=== PATIENT | male | born 1970 | race Hispanic/Latino ===

== ENCOUNTER 2018-05-01 00:52 | Emergency (ER) | payer SELFPAY | END 2018-05-01 01:28 | disposition home or self-care (01) | LOC: EDH 00:52 | DX: S80.01XA Contusion of right knee, initial encounter (principal); F31.9 Bipolar disorder, unspecified; F41.9 Anxiety disorder, unspecified; W22.8XXA Striking against or struck by other objects, initial encounter; Y93.89 Activity, other specified; Y92.89 Other specified places as the place of occurrence of the external cause; Y99.8 Other external cause status ==

== ENCOUNTER 2018-05-09 01:14 | Emergency (ER) | payer OTHER ==
[2018-05-09 01:58] LABS: BASOPHILS % (AUTO) 0.5 % (0.0-5.0); EOSINOPHILS % (AUTO) 0.8 % (0.0-8.0); HEMATOCRIT 38.2 % (42-54); LYMPHOCYTES % (AUTO) 18.4 % (21.0-51.0); MEAN CORPUSCULAR HEMOGLOBIN 27.4 pg (27.0-33.0); MEAN CORPUSCULAR HGB CONC 32.9 g/dL (32.0-36.0); MEAN CORPUSCULAR VOLUME 83.4 fL (79-99); NEUTROPHILS % (AUTO) 73.3 % (40.0-77.0); PLATELET COUNT (AUTO) 239 K/uL (130-400); RED BLOOD CELL COUNT(AUTO) 4.58 MIL/uL (4.50-6.20); RED CELL DISTRIBUTION WIDTH 14.4 % (11.0-15.5); WHITE BLOOD COUNT (AUTO) 13.3 K/uL (4.8-10.8)
[2018-05-09 02:04] LABS: AMPHET/METH SCREEN,URINE NEGATIVE (NEGATIVE); BARBITURATE SCREEN, URINE NEGATIVE (NEGATIVE); BENZODIAZEPINES SCREEN,URINE NEGATIVE (NEGATIVE); CANNABINOID SCREEN,URINE NEGATIVE (NEGATIVE); COCAINE SCREEN,URINE NEGATIVE (NEGATIVE); OPIATE SCREEN,URINE NEGATIVE (NEGATIVE); PHENCYCLIDINE SCREEN,URINE NEGATIVE (NEGATIVE)
[2018-05-09 02:06] LABS: CARBON DIOXIDE 29 mmol/L (21-32); CHLORIDE 105 mmol/L (101-111); GLOMERULAR FILTR. RATE CALC 86 mL/min (>60); GLUCOSE,RANDOM 122 mg/dL (70-105); SODIUM SERUM 141 mmol/L (136-145); UREA NITROGEN, BLOOD 12 mg/dL (7-18)
[2018-05-09 02:10] LABS: ALANINE AMINOTRANSFERASE 45 U/L (12-78); ALBUMIN 3.8 g/dL (3.5-5.0); ALCOHOL, BLOOD < 3 mg/dL (0-10); ASPARTATE AMINOTRANSFERASE 31 U/L (10-37); BILIRUBIN,TOTAL 0.4 mg/dL (0.2-1.0); SALICYLATE 2.9 mg/dL (2.8-20.0); TOTAL PROTEIN, SERUM 6.9 g/dL (6.0-8.3)
[2018-05-09 02:12] LABS: ACETAMINOPHEN < 1 mcg/mL (10-29)
== END 2018-05-09 04:58 | disposition home or self-care (01) ==
LOC: EDH 01:14
DX: F19.10 Other psychoactive substance abuse, uncomplicated (principal); F31.9 Bipolar disorder, unspecified; F41.9 Anxiety disorder, unspecified; Z87.891 Personal history of nicotine dependence
CPT/HCPCS: 36415; 80053; 80305; 85025; 94760; 99284; G0480 ×2; G0481

== ENCOUNTER 2022-08-05 22:48 | Emergency (ER) | payer SELFPAY | END 2022-08-05 23:53 | disposition home or self-care (01) | LOC: EDH 22:48 | DX: M25.461 Effusion, right knee (principal); M25.561 Pain in right knee | CPT/HCPCS: 73562 ==

== ENCOUNTER 2022-08-09 14:17 | Emergency (ER) | payer OTHER ==
[~2022-08-09] VITALS: Ht 167.6 cm; Wt 99.8 kg
[2022-08-09] MEDS ORDERED: ZIPRASIDONE MESYLATE 20 MG/VIAL IM STA (15:03)
[2022-08-09 15:17] LABS: BASOPHILS % (AUTO) 0.6 % (0.0-5.0); EOSINOPHILS % (AUTO) 0.8 % (0.0-8.0); HEMATOCRIT 42.3 % (42-54); LYMPHOCYTES % (AUTO) 24.3 % (21.0-51.0); MEAN CORPUSCULAR HEMOGLOBIN 27.9 pg (27.0-33.0); MEAN CORPUSCULAR HGB CONC 32.6 g/dL (32.0-36.0); MEAN CORPUSCULAR VOLUME 85.5 fL (79-99); MONOCYTES % (AUTO) 11.2 % (3.0-13.0); NEUTROPHILS % (AUTO) 62.4 % (40.0-77.0); PLATELET COUNT (AUTO) 255 K/uL (130-400); RED BLOOD CELL COUNT(AUTO) 4.95 MIL/uL (4.50-6.20); RED CELL DISTRIBUTION WIDTH 14.6 % (11.0-15.5); WHITE BLOOD COUNT (AUTO) 11.9 K/uL (4.8-10.8)
[2022-08-09 15:28] LABS: CARBON DIOXIDE 27 mmol/L (21-32); CHLORIDE 102 mmol/L (101-111); CREATININE 0.9 mg/dL (0.5-1.5); GLOMERULAR FILTR. RATE CALC 95 mL/min (>60); GLUCOSE,RANDOM 149 mg/dL (70-105); POTASSIUM 4.5 mmol/L (3.5-5.1); SODIUM SERUM 139 mmol/L (136-145); UREA NITROGEN, BLOOD 13 mg/dL (7-18)
[2022-08-09 15:32] LABS: ALANINE AMINOTRANSFERASE 35 U/L (12-78); ALBUMIN 4.2 g/dL (3.5-5.0); ALCOHOL, BLOOD 5 mg/dL (0-10); ASPARTATE AMINOTRANSFERASE 17 U/L (10-37); CREATINE KINASE, TOTAL 223 U/L (21-232); TOTAL PROTEIN, SERUM 7.4 g/dL (6.0-8.3)
[2022-08-09 15:33] LABS: SALICYLATE < 2.8 mg/dL (2.8-20.0)
[2022-08-09 15:34] LABS: ACETAMINOPHEN < 1 mcg/mL (10-29)
[2022-08-09 15:40] LABS: APPEARANCE,URINE CLEAR (CLEAR); BILIRUBIN,URINE NEGATIVE (NEGATIVE); COLOR,URINE COLORLESS (YELLOW); GLUCOSE, URINE (UA) NEGATIVE (NEGATIVE); KETONES,URINE NEGATIVE (NEGATIVE); LEUKOCYTE ESTERASE ,URINE NEGATIVE Leu/uL (NEGATIVE); NITRATE,URINE NEGATIVE (NEGATIVE); OCCULT BLOOD,URINE NEGATIVE (NEGATIVE); PH,URINE 5.5 (5.0-8.0); PROTEIN,URINE NEGATIVE (NEGATIVE); UROBILINOGEN,URINE 0.2 mg/dL (0.2-1.0)
[2022-08-09 15:44] LABS: RBC,URINE 0-1 /HPF (0-1); WBC,URINE 0-1 /HPF (0-1)
[2022-08-09] MEDS ORDERED: KETOROLAC 30MG VIAL (30MG/ML) ONE (16:23)
[2022-08-09 16:42] LABS: AMPHET/METH SCREEN,URINE NEGATIVE (NEGATIVE); BARBITURATE SCREEN, URINE NEGATIVE (NEGATIVE); BENZODIAZEPINES SCREEN,URINE NEGATIVE (NEGATIVE); CANNABINOID SCREEN,URINE POSITIVE (NEGATIVE); COCAINE SCREEN,URINE NEGATIVE (NEGATIVE); OPIATE SCREEN,URINE NEGATIVE (NEGATIVE); PHENCYCLIDINE SCREEN,URINE NEGATIVE (NEGATIVE)
[2022-08-09 17:08] VITALS: BP 135/72
== END 2022-08-09 18:34 | disposition home or self-care (01) ==
LOC: EDH 14:17
DX: F31.9 Bipolar disorder, unspecified (principal); Z79.1 Long term (current) use of non-steroidal anti-inflammatories (NSAID)
CPT/HCPCS: 99284; 82550; 80053; 80305; 85025; 36415; 96372 ×2; 81001; G0481; J1885; J3486

== ENCOUNTER 2022-09-21 02:25 | Emergency (ER) | payer OTHER ==
[2022-09-21 02:36] VITALS: BP 127/82
[2022-09-21] MEDS ORDERED: IBUP-1493 PO (02:58)
== END 2022-09-21 03:04 | disposition home or self-care (01) ==
LOC: EDH 02:25
DX: M17.11 Unilateral primary osteoarthritis, right knee (principal); F31.9 Bipolar disorder, unspecified

== ENCOUNTER 2025-01-13 21:59 | Emergency (ER) | payer SELFPAY ==
[~2025-01-13] VITALS: Ht 172.7 cm; Wt 113.4 kg
[~2025-01-13 21:59] MED LIST: IBUP-1493 PO
[2025-01-13 22:51] LABS: BASOPHILS # (AUTO) 0.05 K/uL (0.00-0.20); BASOPHILS % (AUTO) 0.4 % (0.0-5.0); EOSINOPHILS # (AUTO) 0.01 K/uL (0.00-0.70); EOSINOPHILS % (AUTO) 0.1 % (0.0-8.0); HEMATOCRIT 35.6 % (42-54); IMMATURE GRANULOCYTE ABSOLUTE 0.06 K/uL (0-1); LYMPHOCYTES # (AUTO) 1.5 K/uL (1.0-4.8); LYMPHOCYTES % (AUTO) 12.3 % (21.0-51.0); MEAN CORPUSCULAR HEMOGLOBIN 28.1 pg (27.0-33.0); MEAN CORPUSCULAR HGB CONC 32.3 g/dL (32.0-36.0); MONOCYTES # (AUTO) 0.8 K/uL (0.1-1.0); MONOCYTES % (AUTO) 6.8 % (3.0-13.0); NEUTROPHILS # (AUTO) 9.8 K/uL (1.8-7.7); NEUTROPHILS % (AUTO) 79.9 % (40.0-77.0); PLATELET COUNT (AUTO) 235 K/uL (130-400); RED BLOOD CELL COUNT(AUTO) 4.09 MIL/uL (4.50-6.20); RED CELL DISTRIBUTION WIDTH 14.1 % (11.0-15.5); WHITE BLOOD COUNT (AUTO) 12.3 K/uL (4.8-10.8)
[2025-01-13 23:00] LABS: CARBON DIOXIDE 29 mmol/L (21-32); CHLORIDE 103 mmol/L (101-111); CREATININE 0.8 mg/dL (0.5-1.3); GLOMERULAR FILTR. RATE CALC 106 mL/min (>90); GLUCOSE,RANDOM 264 mg/dL (70-105); POTASSIUM 4.5 mmol/L (3.5-5.1); SODIUM SERUM 139 mmol/L (136-145); UREA NITROGEN, BLOOD 13 mg/dL (7-18)
[2025-01-13 23:05] LABS: CREATINE KINASE, TOTAL 138 U/L (21-232)
[2025-01-13 23:10] LABS: ALCOHOL, BLOOD < 3 mg/dL (0-10)
--- NOTE | 2025-01-14 01:18 | ERN ---
ED Note History of Present Illness Stated Complaint: INGESTION OF THC/CBD GUMMIES Chief Complaint: Drug Abuse Time Seen by MD: 22:05 Time Seen by Midlevel: 22:05 Dictation: The patient is a 54-year-old male with a history of bipolar who presents to the emergency department via EMS for evaluation after he took unknown amount of THC gummies. Patient is poor historian and most of the information was gathered by EMS and nursing. Per nurses patient was at a [facility] where he had unknown amount of THC gummies. EMS was called from the [facility] due to patient being drowsy Allergies: Coded Allergies: No Known Allergies (Unverified Allergy, Unknown, 08/09/22) Home Meds Active Scripts Ibuprofen (Motrin/Advil) 800 Mg Tab, 800 MG PO TID, #30 TAB Prov:SHERRELL MENON MD 09/21/22 Past Medical History Past Medical History: Bipolar Surgical History: None Family History: Negative Social History: Negative RN Note Reviewed/Agreed w/PFSH: Yes Review of System Dictation Constitutional: Negative for fever,chills, and weight loss Eyes: Negative for injury, pain,redness, and discharge ENT: Negative for injury,pain or swelling Cardiovascular: Negative for chest pain, palpitations, and edema Respiratory: Negative for shortness of breath, cough, and wheezing, Abdomen/GI: Negative for abdominal pain, nausea, vomiting, diarrhea, and constipation Back: Negative for injury and pain : Negative for injury, bleeding and discharge MS/Extremity: Negative for injury and deformity Skin: Negative for rash, and discoloration Neuro: Negative for headache, numbness, tingling, and seizure positive for weakness Psych: Negative for suicide ideation, homicidal ideation, and hallucinations Initial Vital Sign VS Vital Signs Date Time Temp Pulse Resp B/P (MAP) Pulse Ox O2 Delivery O2 Flow Rate FiO2 01/13/25 22:01 98.1 96 16 114/76 97 Room Air 0 01/14/25 03:46 21 Physical Exam Dictation Vital Signs reviewed General Appearance: Drowsy, oriented x 3, no acute distress, well developed, nourished. Head and Face: non-traumatic. Eyes: PERRL, pink conjunctivas, eyelid no trauma, anterior chamber with arcus senilis. Ears: Pinnas intact and no signs of trauma or erythema ear canals clear and no discharge TM no erythema Nose: No discharge, no bleeding. Oropharynx: Mouth normal, tongue pink. pharynx clear,no erythema, tonsils no exudates, no abscesses noted, mucous membrane moist Neck: Supple, non-tender, no thyromegaly, no masses, no JVD, no bruits Breast:Deferred Chest:No tenderness, no crepitus, no paradoxical movement, no retractions Lungs:Clear, well-ventilated, symmetric, no rales, no wheezing, no rhonchi, no stridor, good breath sounds bilaterally Heart: Regular rate, regular rhythm, no murmur, no gallops Vascular: no peripheral edema, Abdomen: Soft, positive bowel sounds, nondistended, no guarding, nontender, no rebound, no masses no hepatomegaly, no splenomegaly, no Salinas's sign, no hernias. Rectal: Deferred Genital: Deferred Neurological: Normal speech, motor function intact, sensory function intact Musculoskeletal: Neck nontender, full range of motion, back nontender, full range of motion, Extremities: nontender, full range of motion Skin: Color pink, dry, no turgor, no rash, no lacerations, no abrasions, no contusions. Lymphatic: Deferred Results (Laboratory/Radiology) Laboratory/Radiology Laboratory Tests Test 01/13/25 22:34 White Blood Count 12.3 K/uL (4.8-10.8) H Red Blood Count 4.09 MIL/uL (4.50-6.20) L Hemoglobin 11.5 g/dL (14.0-18.0) L Hematocrit 35.6 % (42-54) L Mean Corpuscular Volume 87.0 fL (79-99) Mean Corpuscular Hemoglobin 28.1 pg (27.0-33.0) Mean Corpuscular Hemoglobin Concent 32.3 g/dL (32.0-36.0) Red Cell Distribution Width 14.1 % (11.0-15.5) Platelet Count 235 K/uL (130-400) Mean Platelet Volume 10.6 fL (7.5-10.5) H Immature Granulocyte % (Auto) 0.5 % (0-1) Neutrophils (%) (Auto) 79.9 % (40.0-77.0) H Lymphocytes (%) (Auto) 12.3 % (21.0-51.0) L Monocytes (%) (Auto) 6.8 % (3.0-13.0) Eosinophils (%) (Auto) 0.1 % (0.0-8.0) Basophils (%) (Auto) 0.4 % (0.0-5.0) Neutrophils # (Auto) 9.8 K/uL (1.8-7.7) H Lymphocytes # (Auto) 1.5 K/uL (1.0-4.8) Monocytes # (Auto) 0.8 K/uL (0.1-1.0) Eosinophils # (Auto) 0.01 K/uL (0.00-0.70) Basophils # (Auto) 0.05 K/uL (0.00-0.20) Absolute Immature Granulocyte (auto 0.06 K/uL (0-1) Nucleated Red Blood Cells 0.0 % (0.0-0.19) Sodium Level 139 mmol/L (136-145) Potassium Level 4.5 mmol/L (3.5-5.1) Chloride Level 103 mmol/L (101-111) Carbon Dioxide Level 29 mmol/L (21-32) Blood Urea Nitrogen 13 mg/dL (7-18) Creatinine 0.8 mg/dL (0.5-1.3) Glomerular Filtration Rate Calc 106 mL/min (>90) Random Glucose 264 mg/dL (70-105) H Total Calcium 8.8 mg/dL (8.5-10.1) Magnesium Level 2.00 mg/dL (1.80-2.40) Total Creatine Kinase 138 U/L (21-232) # Troponin I High Sensitivity < 4 ng/L (4-75) L Serum Alcohol < 3 mg/dL (0-10) Labs Reviewed?: Yes EKG: (+) rhythm (Sinus) EKG Comment: Date:01/13/2025 Time:2240 Ventricular rate:95 TX interval:194 QRS duration:86 QT/QTc:373 EKG interpretation: Sinus rhythm Reviewed by ED Attending no STEMI ED Course ED Course Orders Procedure Category Date Status Time Cbc With Differential LAB 01/13/25 Complete 22:24 Chest 1vw RAD 01/13/25 Taken 22:24 12 Lead Ekg Tracing- EKG 01/13/25 Complete Technical 22:24 0.9%Nacl 1000ml (Ns PHA 01/13/25 Complete 1000ml) 22:30 Magnesium LAB 01/13/25 Complete 22:24 Creatine Kinase, Total LAB 01/13/25 Complete 22:24 Troponin I High LAB 01/13/25 Complete Sensitivity 22:24 Urinalysis Profile LAB 01/13/25 Logged 22:24 Basic Metabolic Panel LAB 01/13/25 Complete 22:24 Alcohol, Blood LAB 01/13/25 Complete 22:24 Drug Screen Urine LAB 01/13/25 Logged 22:24 Current Medications Medications (Trade) Dose Ordered Sig/Abraham Route PRN Reason Start Time Stop Time Status Last Admin Dose Admin Sodium Chloride 1,000 ml @ 0 mls/hr ONCE ONCE IV 01/13/25 22:30 01/13/25 22:31 DC 01/14/25 02:35 Vital Signs Date Time Temp Pulse Resp B/P (MAP) Pulse Ox O2 Delivery O2 Flow Rate FiO2 01/14/25 03:46 98.2 88 18 116/74 97 Room Air* 0 21 01/13/25 22:01 98.1 96 16 114/76 97 Room Air 0 Medical Decision Making MDM The patient is a 54-year-old male with a history of bipolar who presents to the emergency department via EMS for evaluation after he took unknown amount of THC gummies. Patient is poor historian and most of the information was gathered by EMS and nursing. Per nurses patient was at a [facility] where he had unknown amount of THC gummies. EMS was called from the [facility] due to patient being drowsy alcohol abuse Differential diagnosis: Drug intoxication, dehydration, CBC showed mild leukocytosis, no anemia, chemistry showed mildly elevated blood glucose, negative troponins, negative alcohol Need for hospitalization: Patient does not meet criteria for hospitalization. There are no social concerns with this patient. DX & DISP Disposition: Discharge Departure Impression: Primary Impression: Drug abuse Additional Impression: Encephalopathy acute Condition: Stable Referrals: SELF,REFERRAL (PCP) I performed a substantive portion of the visit. I have reviewed and personally made and approve the management plan that is documented in the notes by myself with PHAN/resident. I acknowledged full responsibility for the patient's management plan. I took over care in the morning, patient has been observed for about 8 hours in the ER. Clinically intoxicated initially, patient has sobered up. In the morning I woke up the patient's, who is ambulatory p.o. tolerant nontoxic in appearance he has returned to baseline. We will DC. MARLEN PEARCE January 14, 2025 01:17 DAMIEN PAIGE DO January 14, 2025 07:13
[2025-01-14] MEDS: 0.9%NACL 1000ML 1,000 ML IV ONE (02:35)
[2025-01-14 03:46] VITALS: BP 116/74; PULSE 88; RESP 18; TEMP 98.2; O2SAT 97
--- NOTE | 2025-01-14 06:53 | EKG ---
[facility] Test Date: 2025-01-13 Test Time: 22:40:42 Pat Name: FERMÍN RYAN Department: ED Room: Gender: M Floor Surfacer: [id number] : 1970 Requested By: MARLEN PEARCE Order Number: [id number] Reading MD: Aristides Tobias Measurements Intervals [place] Rate: 95 P: 43 NJ: 194 QRS: 26 QRSD: 86 T: 21 QT: 373 QTc: 469 Interpretive Statements Sinus rhythm Compared to ECG 03/14/2018 21:57:12 Sinus tachycardia no longer present Electronically Signed On 01-14-2025 07:40:04 CDT by Aristides Tobias Please click the below link to view image of tracing.
--- NOTE | 2025-01-14 08:40 | HMCIMG ---
CHEST 1VW HISTORY: Dizziness COMPARISON: None FINDINGS: A frontal projection of the chest was obtained. There are bilateral pulmonary infiltrates suggestive of pulmonary vascular congestion with possible superimposed pneumonitis. The heart is borderline enlarged. Mild degenerative changes are seen. No evidence of aortic calcification is seen. IMPRESSION: 1. Bilateral pulmonary infiltrates are seen suggestive of pulmonary vascular congestion with possible superimposed pneumonitis.
== END 2025-01-14 07:33 | disposition home or self-care (01) ==
LOC: EDH 21:59
DX: F19.10 Other psychoactive substance abuse, uncomplicated (principal); G93.40 Encephalopathy, unspecified; Z79.1 Long term (current) use of non-steroidal anti-inflammatories (NSAID)
CPT/HCPCS: 99285; 96360; 71045; 82550; 83735; 84484; 80048; 85025; 36415; 93005; J7030

== ENCOUNTER 2025-01-14 23:13 | Emergency (ER) | payer SELFPAY ==
[~2025-01-14] VITALS: Ht 172.7 cm; Wt 93.4 kg
[2025-01-14 23:45] LABS: BASOPHILS # (AUTO) 0.05 K/uL (0.00-0.20); BASOPHILS % (AUTO) 0.5 % (0.0-5.0); EOSINOPHILS # (AUTO) 0.14 K/uL (0.00-0.70); EOSINOPHILS % (AUTO) 1.5 % (0.0-8.0); IMMATURE GRANULOCYTE ABSOLUTE 0.04 K/uL (0-1); LYMPHOCYTES # (AUTO) 2.9 K/uL (1.0-4.8); LYMPHOCYTES % (AUTO) 30.3 % (21.0-51.0); MEAN CORPUSCULAR HEMOGLOBIN 28.5 pg (27.0-33.0); MEAN CORPUSCULAR HGB CONC 32.9 g/dL (32.0-36.0); MEAN CORPUSCULAR VOLUME 86.5 fL (79-99); MONOCYTES # (AUTO) 0.8 K/uL (0.1-1.0); MONOCYTES % (AUTO) 8.5 % (3.0-13.0); NEUTROPHILS # (AUTO) 5.6 K/uL (1.8-7.7); NEUTROPHILS % (AUTO) 58.8 % (40.0-77.0); PLATELET COUNT (AUTO) 222 K/uL (130-400); RED BLOOD CELL COUNT(AUTO) 3.93 MIL/uL (4.50-6.20); WHITE BLOOD COUNT (AUTO) 9.5 K/uL (4.8-10.8)
--- NOTE | 2025-01-14 23:45 | NUR ---
sister at bedside
[2025-01-14 23:56] LABS: CARBON DIOXIDE 27 mmol/L (21-32); CHLORIDE 105 mmol/L (101-111); CREATININE 0.9 mg/dL (0.5-1.3); GLOMERULAR FILTR. RATE CALC 103 mL/min (>90); GLUCOSE,RANDOM 245 mg/dL (70-105); POTASSIUM 3.7 mmol/L (3.5-5.1); SODIUM SERUM 140 mmol/L (136-145); UREA NITROGEN, BLOOD 20 mg/dL (7-18)
[2025-01-14 23:58] LABS: AMPHET/METH SCREEN,URINE NEGATIVE (NEGATIVE); BARBITURATE SCREEN, URINE NEGATIVE (NEGATIVE); BENZODIAZEPINES SCREEN,URINE NEGATIVE (NEGATIVE); CANNABINOID SCREEN,URINE POSITIVE (NEGATIVE); COCAINE SCREEN,URINE NEGATIVE (NEGATIVE); OPIATE SCREEN,URINE NEGATIVE (NEGATIVE); PHENCYCLIDINE SCREEN,URINE NEGATIVE (NEGATIVE)
[2025-01-15] LABS: CREATINE KINASE, TOTAL 168 U/L (21-232)
[2025-01-15 00:07] LABS: ACETAMINOPHEN < 1 mcg/mL (10-29); ALCOHOL, BLOOD < 3 mg/dL (0-10); SALICYLATE < 2.8 mg/dL (2.8-20.0)
--- NOTE | 2025-01-15 00:14 | NUR ---
[facility] crisis line called, requesting screener to evaluate patient. screener will be paged.
--- NOTE | 2025-01-15 01:25 | NUR ---
brenda durán screener here to evaluate patient
--- NOTE | 2025-01-15 02:32 | ERN ---
General Chief Complaint: Psych Evaluation Stated Complaint: C/[facility] Time Seen by MD: 23:20 Time Seen by Midlevel: 23:20 Source: patient, family (sister) History of Present Illness Initial Comments The patient is a 54-year-old male being brought in by sister for a psych evaluation. As per sister the patient has been having auditory and visual h allucinations. The patient is a followed by [facility] Allergies: Coded Allergies: No Known Allergies (Unverified Allergy, Unknown, 08/09/22) Home Meds Active Scripts Ibuprofen (Motrin/Advil) 800 Mg Tab, 800 MG PO TID, #30 TAB Prov:SINANSHERRELL Castaneda MD 09/21/22 Past Medical History Past Medical History: Anxiety, Bipolar, Depression, Diabetes-Type II, High Cholesterol, Schizophrenia Medical History Other: MANIC DEPRESSION Past Surgical History: Unknown Family History Family History: Negative Social History Social History: Negative ROS Dictation CONSTITUTIONAL: Negative except for HPI HEAD/FACE: Negative except for HPI EENT: Negative except for HPI RESPIRATORY: Negative except for HPI GASTROINTESTINAL/ABDOMINAL: Negative except for HPI GENITOURINARY: Negative except for HPI MUSCULOSKELETAL: Negative except for HPI INTEGUMENTARY: Negative except for HPI NEUROLOGICAL/PSYCH: Negative except for HPI HEMATOLOGIC/LYMPHATIC: Negative except for HPI All Systems Negative, Except as noted above. 13 point review of systems assessed and all negative except for above. Physical Exam Physical Exam Dictation Vital Signs reviewed General Appearance: Alert, oriented x 3, no acute distress, well developed, nourished. Head and Face: non-traumatic. Eyes: PERRL, pink conjunctivas, eyelid no trauma, anterior chamber with arcus senilis. Ears: Pinnas intact and no signs of trauma or erythema ear canals clear and no discharge TM no erythema Nose: No discharge, no bleeding. Oropharynx: Mouth normal, tongue pink, pharynx clear,no erythema, tonsils no exudates, no abscesses noted, mucous membrane moist Neck: Supple, non-tender, no thyromegaly, no masses, no JVD, no bruits Breast:Deferred Chest:No tenderness, no crepitus, no paradoxical movement, no retractions Lungs:Clear, well-ventilated, symmetric, no rales, no wheezing, no rhonchi, no stridor, good breath sounds bilaterally Heart: Regular rate, regular rhythm, no murmur, no gallops Vascular: no peripheral edema, Abdomen: Soft, positive bowel sounds, nondistended, no guarding, nontender, no rebound, no masses no hepatomegaly, no splenomegaly, no Salinas's sign, no hernias. Rectal: Deferred Genital: Deferred Neurological: Normal speech, motor function intact, sensory function intact Musculoskeletal: Neck nontender, full range of motion, back nontender, full range of motion, Extremities: nontender, full range of motion Skin: Color pink, dry, no turgor, no rash, no lacerations, no abrasions, no contusions. Lymphatic: Deferred Results Laboratory and Microbiology Lab and Micro Result Laboratory Tests Test 01/14/25 23:23 01/14/25 23:39 Urine Opiates Screen NEGATIVE (NEGATIVE) Urine Barbiturates Screen NEGATIVE (NEGATIVE) Urine Phencyclidine Screen NEGATIVE (NEGATIVE) Urine Amphetamines Screen NEGATIVE (NEGATIVE) Urine Benzodiazepines Screen NEGATIVE (NEGATIVE) Urine Cocaine Screen NEGATIVE (NEGATIVE) Urine Marijuana (THC) Screen POSITIVE (NEGATIVE) H White Blood Count 9.5 K/uL (4.8-10.8) Red Blood Count 3.93 MIL/uL (4.50-6.20) L Hemoglobin 11.2 g/dL (14.0-18.0) L Hematocrit 34.0 % (42-54) L Mean Corpuscular Volume 86.5 fL (79-99) Mean Corpuscular Hemoglobin 28.5 pg (27.0-33.0) Mean Corpuscular Hemoglobin Concent 32.9 g/dL (32.0-36.0) Red Cell Distribution Width 14.0 % (11.0-15.5) Platelet Count 222 K/uL (130-400) Mean Platelet Volume 10.6 fL (7.5-10.5) H Immature Granulocyte % (Auto) 0.4 % (0-1) Neutrophils (%) (Auto) 58.8 % (40.0-77.0) Lymphocytes (%) (Auto) 30.3 % (21.0-51.0) Monocytes (%) (Auto) 8.5 % (3.0-13.0) Eosinophils (%) (Auto) 1.5 % (0.0-8.0) Basophils (%) (Auto) 0.5 % (0.0-5.0) Neutrophils # (Auto) 5.6 K/uL (1.8-7.7) Lymphocytes # (Auto) 2.9 K/uL (1.0-4.8) Monocytes # (Auto) 0.8 K/uL (0.1-1.0) Eosinophils # (Auto) 0.14 K/uL (0.00-0.70) Basophils # (Auto) 0.05 K/uL (0.00-0.20) Absolute Immature Granulocyte (auto 0.04 K/uL (0-1) Nucleated Red Blood Cells 0.0 % (0.0-0.19) Sodium Level 140 mmol/L (136-145) Potassium Level 3.7 mmol/L (3.5-5.1) Chloride Level 105 mmol/L (101-111) Carbon Dioxide Level 27 mmol/L (21-32) Blood Urea Nitrogen 20 mg/dL (7-18) H Creatinine 0.9 mg/dL (0.5-1.3) Glomerular Filtration Rate Calc 103 mL/min (>90) Random Glucose 245 mg/dL (70-105) H Total Calcium 8.6 mg/dL (8.5-10.1) Total Creatine Kinase 168 U/L (21-232) # Salicylates Level < 2.8 mg/dL (2.8-20.0) L Acetaminophen Level < 1 mcg/mL (10-29) L Serum Alcohol < 3 mg/dL (0-10) MDM The patient is a 54-year-old male being brought in by sister for a psych evaluation. As per sister the patient has been having auditory and visual hallucinations. The patient is a followed by [facility] - Patient evaluated by tropical behavior team, does not meet criteria for inpatient. plan to dc home with f/u outpatient with Tropical behavior team ED Course Orders Procedure Category Date Status Time Cbc With Differential LAB 01/14/25 Complete 23:20 Alcohol, Blood LAB 01/14/25 Complete 23:20 Salicylate LAB 01/14/25 Complete 23:20 Acetaminophen LAB 01/14/25 Complete 23:20 Creatine Kinase, Total LAB 01/14/25 Complete 23:20 Basic Metabolic Panel LAB 01/14/25 Complete 23:20 Drug Screen Urine LAB 01/14/25 Complete 23:20 Vital Signs Date Time Temp Pulse Resp B/P (MAP) Pulse Ox O2 Delivery O2 Flow Rate FiO2 01/15/25 02:45 99.0 89 18 128/64 98 Room Air* 0 21 01/14/25 23:16 97.2 81 20 91/60 96 Room Air DX & DISP Disposition: Discharge Departure Impression: Primary Impression: Psychiatric problem Condition: Stable Additional Instructions: YOU WERE SCREENED BY [facility] TODAY AND DO NOT MEET CRITERIA FOR INPATIENT HOSPITALIZATION. HE WILL FOLLOW UP WITH THE OUTPATIENT. IF YOU DEVELOP ANY WORSENING SYMPTOMS LEAST REPORTED TO THE ER FOR FURTHER EVALUATION. Referrals: SELF,REFERRAL (PCP) Time of Disposition: 02:45 I have reviewed the case, and I agree with, Diagnosis and Plan URVASHI DE ANDA January 15, 2025 02:32 CHILO SMITH MD January 15, 2025 02:45
--- NOTE | 2025-01-15 02:40 | NUR ---
PER [facility] SCREENER; PATIENT DOES NOT MEET CRITERIA; ED MD NOTIFIED
[2025-01-15 02:45] VITALS: BP 128/64; PULSE 89; RESP 18; TEMP 98.9; O2SAT 98
== END 2025-01-15 03:12 | disposition home or self-care (01) ==
LOC: EDH 23:13
DX: F99 Mental disorder, not otherwise specified (principal); E11.9 Type 2 diabetes mellitus without complications; E78.00 Pure hypercholesterolemia, unspecified; F20.9 Schizophrenia, unspecified; F31.9 Bipolar disorder, unspecified; Z79.1 Long term (current) use of non-steroidal anti-inflammatories (NSAID)
CPT/HCPCS: 99283; 82550; 80048; 80305; 85025; 36415; G0481

== ENCOUNTER 2025-02-15 15:47 | Emergency (ER) | payer SELFPAY ==
[~2025-02-15] VITALS: Ht 172.7 cm; Wt 85.7 kg
[2025-02-15] MEDS: ondanSETRON 4MG INJ IVP ONE (16:29)
[2025-02-15] MEDS: ketOROlac 30MG VIAL (30MG/ML) IVP ONE (16:29)
[2025-02-15] MEDS: morPHINE 2 MG SYG IVP ONE (16:29)
--- NOTE | 2025-02-15 16:34 | HMCIMG ---
EXAM: CR Left ankle, 3 View. CLINICAL HISTORY: Injury COMPARISON: None provided. FINDINGS: BONES: No acute fracture or aggressive appearing osseous lesion. JOINTS: The joint spaces appear within normal limits. No dislocation. No radiographic evidence of a joint effusion. SOFT TISSUES: The soft tissues are unremarkable. IMPRESSION: No acute osseous abnormality. /[place]
--- NOTE | 2025-02-15 16:37 | NUR ---
APPLIED PRATIBHA WRAP TO L ANKLE PER MD VERBAL ORDER.
[2025-02-15 16:43] VITALS: BP 116/62; PULSE 105; RESP 18; TEMP 97.9; O2SAT 96
--- NOTE | 2025-02-15 17:13 | ERN ---
General Chief Complaint: Mechanical Fall Stated Complaint: FALL Time Seen by MD: 15:52 History of Present Illness Initial Comments 54 y/o male came in after fall. Pt states that he twisted his ankle and has been having pain in his left ankle. Pt otherwise has no concerns. Allergies: Coded Allergies: No Known Allergies (Unverified Allergy, Unknown, 08/09/22) Home Meds Active Scripts Ibuprofen (Motrin/Advil) 800 Mg Tab, 800 MG PO TID, #30 TAB Prov:WILLAELLESHERRELL Castaneda MD 09/21/22 Past Medical History Past Medical History: Diabetes-Type II, High Cholesterol, Hypertension Medical History Other: MANIC DEPRESSION Past Surgical History: Other Surgical History Other: BILATERAL KNEE MINISCUS REPAIR Family History Family History: Negative Social History Social History: Negative ROS Dictation Ankle pain Physical Exam General Appearance: (+) no apparent distress Orientation: (+) alert Head/Face Trauma: No Ear, Nose, Throat: (+) hearing grossly normal Neck: (+) normal inspection, (+) supple Respiratory: (+) chest non-tender, (+) lungs clear Heart: (+) regular, (+) no gallop Vascular: (+) no edema, (+) normal peripheral pulse Gastrointestinal: (+) soft, (+) non-tender Back: (+) normal inspection, (+) no CVA tenderness, (+) no vertebral tenderness Extremities: (+) normal range of motion, (+) non-tender, (+) normal inspection MDM Left ankle xray shows no acute findings ED Course Orders Procedure Category Date Status Time Ankle Comp 3vws Lt RAD 02/15/25 Resulted 15:52 Morphine 2mg Syg PHA 02/15/25 Complete (Morphine 2mg Syg) 16:00 Ondansetron 4mg Inj PHA 02/15/25 Complete (Zofran 4mg Inj) 16:00 Ketorolac PHA 02/15/25 Complete Tromethamine 30mg/Ml 16:00 Current Medications Medications (Trade) Dose Ordered Sig/Abraham Route PRN Reason Start Time Stop Time Status Last Admin Dose Admin Ketorolac Tromethamine (toRADol) 30 mg ONCE ONCE IVP 02/15/25 16:00 02/15/25 16:01 DC 02/15/25 16:29 Morphine Sulfate (morPHINE 2MG SYG) 2 mg ONCE ONCE IVP 02/15/25 16:00 02/15/25 16:01 DC 02/15/25 16:29 Ondansetron HCl (zoFRAN 4MG INJ) 4 mg ONCE ONCE IVP 02/15/25 16:00 02/15/25 16:01 DC 02/15/25 16:29 Vital Signs Date Time Temp Pulse Resp B/P (MAP) Pulse Ox O2 Delivery O2 Flow Rate FiO2 02/15/25 16:43 97.9 105 18 116/62 96 Room Air* 0 21 02/15/25 15:48 97.9 106 18 120/56 98 Room Air 0 DX & DISP Disposition: Discharge Departure Impression: Primary Impression: Ankle sprain Condition: Stable Referrals: SELF,REFERRAL (PCP) KARSTEN BONILLA MD Feb 15, 2025 17:13
== END 2025-02-15 17:18 | disposition home or self-care (01) ==
LOC: EDH 15:47
DX: S93.402A Sprain of unspecified ligament of left ankle, initial encounter (principal); E11.9 Type 2 diabetes mellitus without complications; E78.00 Pure hypercholesterolemia, unspecified; F31.9 Bipolar disorder, unspecified; I10 Essential (primary) hypertension; Z79.1 Long term (current) use of non-steroidal anti-inflammatories (NSAID); X50.1XXA Overexertion from prolonged static or awkward postures, initial encounter; Y93.89 Activity, other specified; Y92.89 Other specified places as the place of occurrence of the external cause; Y99.8 Other external cause status
CPT/HCPCS: 99284; 96374; 96375; 73610; J1885; J2270; J2405

== ENCOUNTER 2025-02-16 02:58 | Emergency (ER) | payer SELFPAY ==
[~2025-02-16] VITALS: Ht 172.7 cm; Wt 85.7 kg
--- NOTE | 2025-02-16 03:12 | ERN ---
General Chief Complaint: Ankle Problem Stated Complaint: L ANKLE PAIN Time Seen by MD: 03:00 Source: patient History of Present Illness Initial Comments Patient is a 54-year-old male coming in to be evaluated for left ankle pain. Per patient he was seen earlier went home believes he might have strained his ankle again. He was able to ambulate with some discomfort. Allergies: Coded Allergies: No Known Allergies (Unverified Allergy, Unknown, 08/09/22) Home Meds Active Scripts Ibuprofen (Motrin/Advil) 800 Mg Tab, 800 MG PO TID, #30 TAB Prov:SHERRELL MENON MD 09/21/22 Past Medical History Past Medical History: Diabetes-Type II, High Cholesterol, Hypertension Medical History Other: MANIC DEPRESSION Past Surgical History: Other Surgical History Other: BILATERAL KNEE MINISCUS REPAIR Family History Family History: Negative Social History Social History: Negative ROS Dictation CONSTITUTIONAL: No chills, no fever, no weakness, no diaphoresis, no malaise. HEAD/FACE: No signs of trauma. EENT: No eye pain, no blurred vision, no tearing, no double vision, no ear pain, no ear discharge, no nose pain, no nasal congestion, no throat pain, no throat swelling, no mouth pain. RESPIRATORY: No cough, no orthopnea, no SOB, no stridor, no wheezing. CARDIOVASCULAR: No chest pain, no edema, no palpitations, no syncope. GASTROINTESTINAL/ABDOMINAL: No abdominal pain, no constipation, no diarrhea, no nausea, no vomiting. GENITOURINARY: No abnormal discharge, no dysuria, no frequent urination, no hematuria. No complaints of pain in the genitals. MUSCULOSKELETAL: No back pain, gout, no joint pain, no joint swelling, muscle pain, no muscle stiffness, no neck pain. INTEGUMENTARY: No change in color, no change in hair/nails, no dryness, no lesion, no lumps, no rash. NEUROLOGICAL/PSYCH: No anxiety, not depressed, no emotional problem, no headache, no numbness, no pre-existing deficit, no history of seizures, no tremors, no weakness. HEMATOLOGIC/LYMPHATIC: Not anemic, no history of blood clots, no apparent bleeding, no bruising, glands not swollen. All Systems Negative, Except as Noted. Physical Exam Physical Exam Dictation VITAL SIGNS: Reviewed. GENERAL APPEARANCE: Alert, oriented x3, no acute distress, obese. HEAD AND FACE: Non-traumatic. EYES: PERRL, pink conjunctivas, eyelid no trauma, anterior chamber clear. EARS: Pinnas intact and no signs of trauma or erythema. Ear canals clear and no discharge. TMs no erythema. NOSE: No discharge, no bleeding. OROPHARYNX: Mouth normal, teeth no caries, tongue pink. Pharynx clear, no erythema. Tonsils no exudates, no abscesses noted. Mucous membrane moist. NECK: Supple, non-tender, no thyromegaly, no masses, no JVD, no bruits. BREAST: Deferred. CHEST: No tenderness, no crepitus, no paradoxical movement, no retractions. LUNGS: Clear, well-ventilated, symmetric, no rales, no wheezing, no rhonchi, no stridor, good breath sounds bilaterally. HEART: Regular rate, regular rhythm, no murmur, no gallops. VASCULAR: No peripheral edema. ABDOMEN: Soft, positive bowel sounds, nondistended, no guarding, nontender, no rebound, no masses no hepatomegaly, no splenomegaly, no Salinas's sign, no hernias. RECTAL: Deferred. GENITAL: Deferred. NEUROLOGICAL: Normal speech, gross motor function intact, gross sensory function intact. MUSCULOSKELETAL: Neck nontender, full range of motion, back nontender, full range of motion. EXTREMITIES: Nontender, full range of motion. Left ankle tenderness on palpation ecchymosis on the lateral aspect SKIN: Color pink, dry, no turgor, no rash, no lacerations, no abrasions, no contusions. LYMPHATICS: Deferred. Results Laboratory and Microbiology Labs Reviewed?: Yes MDM MDM: Differential diagnosis: Ankle sprain, re-evaluation Rationale: Tests considered and ordered secondary to shared decision making include: Previous outside records reviewed: Old ER visits. Risk of complication and/or morbidity or mortality of patient management: None Medications-Per medication reconciliation Need for hospitalization: Patient does not meet criteria for hospitalization. Need for emergency major/minor surgery: No In his is a 54-year-old gentleman coming in complaining of left ankle discomfort. Patient was recently seen and came back due to ankle discomfort. Gel splint was placed and pt discharged in stable condition. ED Course Orders Procedure Category Date Status Time Ankle Stirrup Splint HAO.ER 02/16/25 Verified 03:08 DX & DISP Disposition: Discharge Departure Impression: Primary Impression: Ankle sprain Condition: Stable Additional Instructions: FOLLOW-UP WITH PRIMARY CARE PROVIDER IN 1 TO 2 DAYS. TAKE MEDICATIONS DIRECTED HERE IN THE EMERGENCY ROOM. OKAY TO CONTINUE HOME MEDICATIONS UNLESS OTHERWISE DISCUSSED DURING YOUR VISIT IN THE EMERGENCY ROOM TODAY. RETURN TO YOUR NEAREST EMERGENCY ROOM IF SYMPTOMS WORSEN OR IF THERE IS NO IMPROVEMENT. CALL 911 IF YOU NEED IMMEDIATE ASSISTANCE. TAKE TYLENOL [id number] NEEDED AND IF NO CONTRAINDICATIONS ARE PRESENT. INCREASE ORAL HYDRATION. A WOUND CULTURE OR URINE CULTURE WAS ORDERED HERE IN THE EMERGENCY ROOM DEPARTMENT PLEASE FOLLOW-UP WITH PRIMARY CARE PROVIDER AND ADVISE THEM TO GET REPORTS FROM OUR FACILITY. IF YOU HAD ANY PRATIBHA WRAP/SPLINTS THAT WERE APPLIED HERE, PLEASE DO NOT REMOVE THEM UNTIL YOU SEE YOUR PRIMARY CARE OR SPECIALTY. Referrals: Referrals: SELF,REFERRAL (PCP) URVASHI BRADEN MD Time of Disposition: 03:12 SONI WEINER MD Feb 16, 2025 03:12
[2025-02-16 03:22] VITALS: BP 122/60; PULSE 94; RESP 18; TEMP 97.8; O2SAT 99
--- NOTE | 2025-02-16 03:23 | NUR ---
GEL ANKLE SPLINT APPLIED TO L ANKLE, TOLERATED WELL
[2025-02-16] MEDS: acetaMINOPHEN 325 MG TAB PO ONE (03:36)
== END 2025-02-16 03:37 | disposition home or self-care (01) ==
LOC: EDH 02:58
DX: S93.402A Sprain of unspecified ligament of left ankle, initial encounter (principal); E11.9 Type 2 diabetes mellitus without complications; E78.00 Pure hypercholesterolemia, unspecified; F32.A Depression, unspecified; I10 Essential (primary) hypertension; Z79.1 Long term (current) use of non-steroidal anti-inflammatories (NSAID); X58.XXXA Exposure to other specified factors, initial encounter; Y93.89 Activity, other specified; Y92.89 Other specified places as the place of occurrence of the external cause; Y99.8 Other external cause status
CPT/HCPCS: 99283

== ENCOUNTER 2025-03-14 20:21 | Emergency (ER) | payer SELFPAY ==
[~2025-03-14] VITALS: Ht 165.1 cm; Wt 90.7 kg
[2025-03-14 20:34] VITALS: BP 140/70; PULSE 90; RESP 16; TEMP 98.1; O2SAT 98
[2025-03-14] MEDS ORDERED: CLOT15CR23 TP (20:37)
--- NOTE | 2025-03-14 20:38 | ERN ---
ED Note History of Present Illness Stated Complaint: NAUSEA AND ANXIETY Chief Complaint: Multiple Complaints Time Seen by MD: 20:23 Dictation: 54-YEAR-OLD MALE COMING IN TODAY WITH COMPLAINTS OF ANXIETY AND STATES HE HAS SOMETHING COMING OUT OF HIS PENIS. STATES HE HAS A HISTORY OF DIABETES HE IS ON METFORMIN DOCTOR IS [facility]. EXAM NO BITTEN HIS PENIS DEMONS TRATES HE HAS A CANDIDIASIS. STATES HE HAS NOT SEEN HIS PRIMARY CARE DOCTOR. Allergies: Coded Allergies: No Known Allergies (Unverified Allergy, Unknown, 08/09/22) Home Meds Active Scripts Clotrimazole (Clotrimazole) 1 % Cream..g., 1 APPL TP BID for 7 Days, #30 GM 0 Refills WASH PENIS WITH SOAP AND WATER THOROUGHLY DRY, APPLY SMALL AMOUNT OF OINTMENT TO HEAD OF PENIS AND REPLACED FORESKIN TWICE A DAY FOR THE NEXT 7-10 DAYS. Prov:RAJAT ESTRADA HOSPICE RN 03/14/25 Ibuprofen (Motrin/Advil) 800 Mg Tab, 800 MG PO TID, #30 TAB Prov:SHERRELL MENON MD 09/21/22 Past Medical History Past Medical History: Diabetes-Type II, Hypertension, Schizophrenia Additional Past Medical Hx: MANIC DEPRESSION Surgical History: None Surgical History Other: BILATERAL KNEE MINISCUS REPAIR Family History: Negative Social History: Negative RN Note Reviewed/Agreed w/PFSH: Yes Review of System Dictation CONSTITUTIONAL: NEGATIVE EXCEPT FOR HPI HEAD/FACE: NEGATIVE EXCEPT FOR HPI EENT: NEGATIVE EXCEPT FOR HPI RESPIRATORY: NEGATIVE EXCEPT FOR HPI GASTROINTESTINAL/ABDOMINAL: NEGATIVE EXCEPT FOR HPI GENITOURINARY: NEGATIVE EXCEPT FOR HPI PENILE DISCHARGE MUSCULOSKELETAL: NEGATIVE EXCEPT FOR HPI INTEGUMENTARY: NEGATIVE EXCEPT FOR HPI NEUROLOGICAL/PSYCH: NEGATIVE EXCEPT FOR HPI HEMATOLOGIC/LYMPHATIC: NEGATIVE EXCEPT FOR HPI ALL SYSTEMS NEGATIVE, EXCEPT NOTED ABOVE. 13 POINT REVIEW OF SYSTEMS ASSESSED AND ALL NEGATIVE EXCEPT FOR ABOVE. Initial Vital Sign VS Vital Signs Date Time Temp Pulse Resp B/P (MAP) Pulse Ox O2 Delivery O2 Flow Rate FiO2 03/14/25 20:22 98.2 104 19 146/72 97 Room Air 0 03/14/25 20:34 21 Physical Exam Dictation VITAL SIGNS REVIEWED GENERAL APPEARANCE: ALERT, ORIENTED X 3, NO ACUTE DISTRESS, WELL DEVELOPED, NOURISHED. ANXIOUS HEAD AND FACE: NON-TRAUMATIC. EYES: PERRL, PINK CONJUNCTIVAS, EYELID NO TRAUMA, ANTERIOR CHAMBER WITH ARCUS SENILIS. EARS: PINNAS INTACT AND NO SIGNS OF TRAUMA OR ERYTHEMA EAR CANALS CLEAR AND NO DISCHARGE TM NO ERYTHEMA NOSE: NO DISCHARGE, NO BLEEDING. OROPHARYNX: MOUTH NORMAL, TONGUE PINK, PHARYNX CLEAR,NO ERYTHEMA, TONSILS NO EXUDATES, NO ABSCESSES NOTED, MUCOUS MEMBRANE MOIST NECK: SUPPLE, NON-TENDER, NO THYROMEGALY, NO MASSES, NO JVD, NO BRUITS BREAST:DEFERRED CHEST:NO TENDERNESS, NO CREPITUS, NO PARADOXICAL MOVEMENT, NO RETRACTIONS LUNGS:CLEAR, WELL-VENTILATED, SYMMETRIC, NO RALES, NO WHEEZING, NO RHONCHI, NO STRIDOR, GOOD BREATH SOUNDS BILATERALLY HEART: REGULAR RATE, REGULAR RHYTHM, NO MURMUR, NO GALLOPS VASCULAR: NO PERIPHERAL EDEMA, ABDOMEN: SOFT, POSITIVE BOWEL SOUNDS, NONDISTENDED, NO GUARDING, NONTENDER, NO REBOUND, NO MASSES NO HEPATOMEGALY, NO SPLENOMEGALY, NO MCCARTHY'S SIGN, NO HERNIAS. RECTAL: DEFERRED GENITAL: PATIENT IS HOODED AND BILATERAL TESTICLES ARE DESCENDED. RETRACTION OF FORESKIN DEMONSTRATES CANDIDIASIS. NEUROLOGICAL: NORMAL SPEECH, MOTOR FUNCTION INTACT, SENSORY FUNCTION INTACT MUSCULOSKELETAL: NECK NONTENDER, FULL RANGE OF MOTION, BACK NONTENDER, FULL RANGE OF MOTION, EXTREMITIES: NONTENDER, FULL RANGE OF MOTION SKIN: COLOR PINK, DRY, NO TURGOR, NO RASH, NO LACERATIONS, NO ABRASIONS, NO CONTUSIONS. LYMPHATIC: DEFERRED Results (Laboratory/Radiology) Labs Reviewed?: Yes ED Course ED Course Orders Procedure Category Date Status Time Acetaminophen 500mg PHA 03/14/25 Complete Tab (Tylenol 500mg T 21:00 Acetaminophen 500mg PHA 03/14/25 Complete Tab (Tylenol 500mg T 20:51 Current Medications Medications (Trade) Dose Ordered Sig/Abraham Route PRN Reason Start Time Stop Time Status Last Admin Dose Admin Acetaminophen (TYLenol 500MG TAB) 500 mg STK-MED ONCE .ROUTE 03/14/25 20:51 03/14/25 20:52 DC 03/14/25 20:56 Acetaminophen (TYLenol 500MG TAB) 1,000 mg ONCE ONCE PO 03/14/25 21:00 03/14/25 20:57 DC Vital Signs Date Time Temp Pulse Resp B/P (MAP) Pulse Ox O2 Delivery O2 Flow Rate FiO2 03/14/25 20:34 98.1 90 16 140/70 98 Room Air* 0 21 03/14/25 20:22 98.2 104 19 146/72 97 Room Air 0 Medical Decision Making MDM MEDICAL DISCHARGE MAKING BASED ON PHYSICAL EXAMINATION PATIENT HAS A GENITAL CANDIDIASIS DISCHARGED HOME WITH CLOTRIMAZOLE TOLD RETRACT HIS SKIN 3 TIMES A DAY AND WASH WITH SOAP AND WATER APPLY CLOTRIMAZOLE AND REPLACE FORESKIN. FOLLOW UP WITH HIS DOCTOR AT [facility] DX & DISP Disposition: Discharge Departure Impression: Primary Impression: Candidiasis of genitalia Additional Impression: Anxiety Condition: Stable Scripts Clotrimazole (Clotrimazole) 1 % Cream..g. 1 APPL TP BID for 7 Days, #30 GM 0 Refills WASH PENIS WITH SOAP AND WATER THOROUGHLY DRY, APPLY SMALL AMOUNT OF OINTMENT TO HEAD OF PENIS AND REPLACED FORESKIN TWICE A DAY FOR THE NEXT 7-10 DAYS. Prov: RAJAT ESTRADA NP 03/14/25 Additional Instructions: FOLLOW-UP WITH PRIMARY CARE PROVIDER IN 1 TO 2 DAYS. TAKE MEDICATIONS DIRECTED HERE IN THE EMERGENCY ROOM. OKAY TO CONTINUE HOME MEDICATIONS UNLESS OTHERWISE DISCUSSED DURING YOUR VISIT IN THE EMERGENCY ROOM TODAY. RETURN TO YOUR NEAREST EMERGENCY ROOM IF SYMPTOMS WORSEN OR IF THERE IS NO IMPROVEMENT. CALL 911 IF YOU NEED IMMEDIATE ASSISTANCE. TAKE TYLENOL OR MOTRIN [id number] NEEDED AND IF NO CONTRAINDICATIONS ARE PRESENT. INCREASE ORAL HYDRATION. A WOUND CULTURE OR URINE CULTURE WAS ORDERED HERE IN THE EMERGENCY ROOM DEPARTMENT PLEASE FOLLOW-UP WITH PRIMARY CARE PROVIDER AND ADVISE THEM TO GET REPEAT PORTS FROM OUR FACILITY. IF YOU HAD ANY PRATIBHA WRAP/SPLINTS THAT WERE APPLIED HERE, PLEASE DO NOT REMOVE THEM UNTIL YOU SEE YOUR PRIMARY CARE OR SPECIALTY. TAKE TYLENOL OR MOTRIN [id number] NEEDED FOR PAIN. WASH HER PENIS WELL WITH SOAP AND WATER RETRACT SKIN AND DRY THOROUGHLY, APPLY CLOTRIMAZOLE TWICE A DAY FOR THE NEXT 7-10 DAYS. AND REPLACE SKIN. SEE YOUR DOCTOR AT THE [facility] IN THE NEXT 2-3 DAYS FOR FOLLOW UP AND MANAGEMENT Referrals: SELF,REFERRAL (PCP) Time of Disposition: 20:36 I have reviewed the case, and I agree with, Diagnosis and Plan RAJAT ESTRADA NP Mar 14, 2025 20:38
== END 2025-03-14 20:57 | disposition home or self-care (01) ==
LOC: EDH 20:21
DX: F41.9 Anxiety disorder, unspecified (principal); B37.49 Other urogenital candidiasis; E11.9 Type 2 diabetes mellitus without complications; I10 Essential (primary) hypertension; F20.9 Schizophrenia, unspecified; Z79.899 Other long term (current) drug therapy
CPT/HCPCS: 99283

== ENCOUNTER 2025-03-21 01:29 | Emergency (ER) | payer SELFPAY ==
[~2025-03-21] VITALS: Ht 180.3 cm; Wt 90.7 kg
[~2025-03-21 01:29] MED LIST changes: +CLOT15CR23 TP
--- NOTE | 2025-03-21 01:35 | NUR ---
UA CUP PROVIDED
[2025-03-21] MEDS: 0.9%NACL 1000ML 1,000 ML IV ONE (02:01)
--- NOTE | 2025-03-21 02:04 | ERN ---
General Chief Complaint: Multiple Complaints Stated Complaint: HIGH GLUCOSE, RT KNEE PAIN Time Seen by MD: 01:33 Time Seen by Midlevel: 01:33 Source: patient History of Present Illness Initial Comments The patient is a 54-year-old male with a past medical history of type 2 diabetes presenting to the emergency department with multiple complaints. The patient states his right knee has been bothering him for several weeks and would like some pain medication at this time. He also states he has been unable to control his blood sugar at home. He normally takes metformin and long-acting insulin but states his sugars has been running high. Today he feels like his sugars are high so he decided to report to the ER for further evaluation. Allergies: Coded Allergies: No Known Allergies (Unverified Allergy, Unknown, 08/09/22) Home Meds Active Scripts Clotrimazole (Clotrimazole) 1 % Cream..g., 1 APPL TP BID for 7 Days, #30 GM 0 Refills WASH PENIS WITH SOAP AND WATER THOROUGHLY DRY, APPLY SMALL AMOUNT OF OINTMENT TO HEAD OF PENIS AND REPLACED FORESKIN TWICE A DAY FOR THE NEXT 7-10 DAYS. Prov:RAJAT ESTRADA NP 03/14/25 Ibuprofen (Motrin/Advil) 800 Mg Tab, 800 MG PO TID, #30 TAB Prov:SHERRELL MENON MD 09/21/22 Past Medical History Past Medical History: Diabetes-Type II, Hypertension, Schizophrenia Medical History Other: MANIC DEPRESSION Past Surgical History: Other Surgical History Other: BILATERAL KNEE MINISCUS REPAIR Family History Family History: Negative Social History Social History: Negative ROS Dictation CONSTITUTIONAL: Negative except for HPI HEAD/FACE: Negative except for HPI EENT: Negative except for HPI RESPIRATORY: Negative except for HPI GASTROINTESTINAL/ABDOMINAL: Negative except for HPI GENITOURINARY: Negative except for HPI MUSCULOSKELETAL: Negative except for HPI INTEGUMENTARY: Negative except for HPI NEUROLOGICAL/PSYCH: Negative except for HPI HEMATOLOGIC/LYMPHATIC: Negative except for HPI All Systems Negative, Except as noted above. 13 point review of systems assessed and all negative except for above. Physical Exam Physical Exam Dictation Vital Signs reviewed General Appearance: Alert, oriented x 3, no acute distress, well developed, nourished. Head and Face: non-traumatic. Eyes: PERRL, pink conjunctivas, eyelid no trauma, anterior chamber with arcus senilis. Ears: Pinnas intact and no signs of trauma or erythema ear canals clear and no discharge TM no erythema Nose: No discharge, no bleeding. Oropharynx: Mouth normal, tongue pink, pharynx clear,no erythema, tonsils no exudates, no abscesses noted, mucous membrane moist Neck: Supple, non-tender, no thyromegaly, no masses, no JVD, no bruits Breast:Deferred Chest:No tenderness, no crepitus, no paradoxical movement, no retractions Lungs:Clear, well-ventilated, symmetric, no rales, no wheezing, no rhonchi, no stridor, good breath sounds bilaterally Heart: Regular rate, regular rhythm, no murmur, no gallops Vascular: no peripheral edema, Abdomen: Soft, positive bowel sounds, nondistended, no guarding, nontender, no rebound, no masses no hepatomegaly, no splenomegaly, no Salinas's sign, no hernias. Rectal: Deferred Genital: Deferred Neurological: Normal speech, motor function intact, sensory function intact Musculoskeletal: Neck nontender, full range of motion, back nontender, full range of motion, Extremities: nontender, full range of motion Skin: Color pink, dry, no turgor, no rash, no lacerations, no abrasions, no contusions. Lymphatic: Deferred Results Laboratory and Microbiology Lab and Micro Result Laboratory Tests Test 03/21/25 01:40 White Blood Count 12.1 K/uL (4.8-10.8) H Red Blood Count 4.69 MIL/uL (4.50-6.20) Hemoglobin 13.1 g/dL (14.0-18.0) L Hematocrit 40.4 % (42-54) L Mean Corpuscular Volume 86.1 fL (79-99) Mean Corpuscular Hemoglobin 27.9 pg (27.0-33.0) Mean Corpuscular Hemoglobin Concent 32.4 g/dL (32.0-36.0) Red Cell Distribution Width 14.2 % (11.0-15.5) Platelet Count 292 K/uL (130-400) Mean Platelet Volume 11.6 fL (7.5-10.5) H Immature Granulocyte % (Auto) 0.3 % (0-1) Neutrophils (%) (Auto) 65.2 % (40.0-77.0) Lymphocytes (%) (Auto) 23.2 % (21.0-51.0) Monocytes (%) (Auto) 8.9 % (3.0-13.0) Eosinophils (%) (Auto) 1.9 % (0.0-8.0) Basophils (%) (Auto) 0.5 % (0.0-5.0) Neutrophils # (Auto) 7.9 K/uL (1.8-7.7) H Lymphocytes # (Auto) 2.8 K/uL (1.0-4.8) Monocytes # (Auto) 1.1 K/uL (0.1-1.0) H Eosinophils # (Auto) 0.23 K/uL (0.00-0.70) Basophils # (Auto) 0.06 K/uL (0.00-0.20) Absolute Immature Granulocyte (auto 0.04 K/uL (0-1) Nucleated Red Blood Cells 0.0 % (0.0-0.19) Sodium Level 137 mmol/L (136-145) Potassium Level 3.8 mmol/L (3.5-5.1) Chloride Level 103 mmol/L (101-111) Carbon Dioxide Level 29 mmol/L (21-32) Blood Urea Nitrogen 13 mg/dL (7-18) Creatinine 0.7 mg/dL (0.5-1.3) Glomerular Filtration Rate Calc 111 mL/min (>90) Random Glucose 254 mg/dL (70-105) H Whole Blood Ketones Quantitative < 0.1 mmol/L (0.0-0.6) Total Calcium 9.3 mg/dL (8.5-10.1) Magnesium Level 1.70 mg/dL (1.80-2.40) L Labs Reviewed?: Yes MDM MDM: Differential diagnosis: Uncontrolled diabetes with hyperglycemia, dehydration, electrolyte abnormality, DKA There are no social concerns with this patient. Prescription drug management Prescriptions will include: None Medical management and examination interpretation discussions were had by me with other qualified healthcare professionals as indicated for the patient's care. ED Course Orders Procedure Category Date Status Time Cbc With Differential LAB 03/21/25 Complete 01:54 Basic Metabolic Panel LAB 03/21/25 Complete 01:54 Ketone Blood LAB 03/21/25 Complete Quantitative 01:54 Magnesium LAB 03/21/25 Complete 01:54 0.9%Nacl 1000ml (Ns PHA 03/21/25 Complete 1000ml) 02:00 Morphine 2mg Syg PHA 03/21/25 Complete (Morphine 2mg Syg) 02:00 Ondansetron 4mg Inj PHA 03/21/25 Complete (Zofran 4mg Inj) 02:00 Magnesium Oxide PHA 03/21/25 Complete (Mag-Ox) 02:30 Current Medications Medications (Trade) Dose Ordered Sig/Abraham Route PRN Reason Start Time Stop Time Status Last Admin Dose Admin Magnesium Oxide (Mag-Ox) 400 mg ONCE ONCE PO 03/21/25 02:30 03/21/25 02:31 DC 03/21/25 02:44 Morphine Sulfate (morPHINE 2MG SYG) 2 mg ONCE ONCE IVP 03/21/25 02:00 03/21/25 02:01 DC 03/21/25 02:01 Ondansetron HCl (zoFRAN 4MG INJ) 4 mg ONCE ONCE IVP 03/21/25 02:00 03/21/25 02:01 DC 03/21/25 02:01 Sodium Chloride 1,000 ml @ 0 mls/hr ONCE ONCE IV 03/21/25 02:00 03/21/25 02:01 DC 03/21/25 02:01 Vital Signs Date Time Temp Pulse Resp B/P (MAP) Pulse Ox O2 Delivery O2 Flow Rate FiO2 03/21/25 02:47 98.4 88 16 117/62 98 Room Air* 0 21 03/21/25 01:50 98.4 87 16 118/70 97 Room Air* 0 21 03/21/25 01:30 98.1 88 18 122/71 98 Room Air DX & DISP Disposition: Discharge Departure Impression: Primary Impression: Hyperglycemia Additional Impression: Right knee pain Condition: Stable Referrals: SELF,REFERRAL (PCP) I have reviewed the case, and I agree with, Diagnosis and Plan I performed the substantive portion of the visit. I have reviewed and personally made and approve the management plan that is documented in the note by myself or the PHAN. I acknowledge for responsibility for the patient's management plan. URVASHI DE ANDA Mar 21, 2025 02:04
[2025-03-21 02:07] LABS: IMMATURE GRANULOCYTE ABSOLUTE 0.04 K/uL (0-1); NUCLEATED RED BLOOD CELLS 0.0 % (0.0-0.19); PLATELET COUNT (AUTO) 292 K/uL (130-400); RED BLOOD CELL COUNT(AUTO) 4.69 MIL/uL (4.50-6.20); RED CELL DISTRIBUTION WIDTH 14.2 % (11.0-15.5); WHITE BLOOD COUNT (AUTO) 12.1 K/uL (4.8-10.8)
[2025-03-21 02:16] LABS: CREATININE 0.7 mg/dL (0.5-1.3); GLOMERULAR FILTR. RATE CALC 111 mL/min (>90); GLUCOSE,RANDOM 254 mg/dL (70-105); SODIUM SERUM 137 mmol/L (136-145); UREA NITROGEN, BLOOD 13 mg/dL (7-18)
[2025-03-21] MEDS: MAGNESIUM OXIDE 400 MG TABLET PO ONE (02:44)
[2025-03-21 02:47] VITALS: BP 117/62; PULSE 88; RESP 16; TEMP 98.4; O2SAT 98
== END 2025-03-21 02:58 | disposition home or self-care (01) ==
LOC: EDH 01:29
DX: E11.65 Type 2 diabetes mellitus with hyperglycemia (principal); M25.561 Pain in right knee; F20.9 Schizophrenia, unspecified; I10 Essential (primary) hypertension; F33.9 Major depressive disorder, recurrent, unspecified; Z79.1 Long term (current) use of non-steroidal anti-inflammatories (NSAID)
CPT/HCPCS: 99284; 96374; 96361; 96375; 83735; 80048; 85025; 82010; 36415; J2270; J7030; J2405

== ENCOUNTER 2025-04-12 01:21 | Emergency (ER) | payer SELFPAY ==
[~2025-04-12] VITALS: Ht 172.7 cm; Wt 90.7 kg
--- NOTE | 2025-04-12 01:40 | ERN ---
ED Note History of Present Illness Stated Complaint: R KNEE PAIN, L HEEL PAIN S/P FALL Chief Complaint: Knee Injury/Swelling Time Seen by MD: 01:24 Dictation: This is a 54-year-old obese male who presented to the emergency room with complaints of a fall and pains. He stated that he had 12 pack beer got tipsy was climbing up the stairs tripped in the right knee held his weight. The left heel also got an impact on the steps he did not hit his head or any other part of the body. He came into the ER for evaluation of pain. He stated that he had had prior injury to the right knee and underwent a right knee arthroplasty. No loss of consciousness patient is not on any blood thinners. No blurred vision diplopia facial droop speech impediment or weakness. Patient ambulated without any problems. Temperature 98.3 pulse 80 respirations 15 blood pressure 124/83 with a pulse oximetry of 100% on room air His chronic medical problems include type 2 diabetes mellitus and hypertension, hypercholesterolemia, manic depression Allergies: Coded Allergies: No Known Allergies (Unverified Allergy, Unknown, 08/09/22) Home Meds Active Scripts Clotrimazole (Clotrimazole) 1 % Cream..g., 1 APPL TP BID for 7 Days, #30 GM 0 Refills WASH PENIS WITH SOAP AND WATER THOROUGHLY DRY, APPLY SMALL AMOUNT OF OINTMENT TO HEAD OF PENIS AND REPLACED FORESKIN TWICE A DAY FOR THE NEXT 7-10 DAYS. Prov:RAJAT ESTRADA WEATHERSTRIP MACHINE OPERATOR 03/14/25 Ibuprofen (Motrin/Advil) 800 Mg Tab, 800 MG PO TID, #30 TAB Prov:SHERRELL MENON MD 09/21/22 Past Medical History Past Medical History: Diabetes-Type II, High Cholesterol, Hypertension Additional Past Medical Hx: MANIC DEPRESSION Surgical History: Other Surgical History Other: right knee arthroscopy Family History: Negative Social History: ETOH, Negative RN Note Reviewed/Agreed w/PFSH: Yes Review of System Dictation Constitutional: Negative for fever,chills, and weight loss Eyes: Negative for injury, pain,redness, and discharge ENT: Negative for injury,pain or swelling Cardiovascular: Negative for chest pain, palpitations, and edema Respiratory: Negative for shortness of breath, cough, and wheezing, Abdomen/GI: Negative for abdominal pain, nausea, vomiting, diarrhea, and constipation Back: Negative for injury and pain : Negative for injury, bleeding and discharge MS/Extremity: Negative for injury and deformity positive for right knee pain and left heel pain Skin: Negative for rash, and discoloration Neuro: Negative for headache, weakness, numbness, tingling, and seizure Psych: Negative for suicide ideation, homicidal ideation, and hallucinations Initial Vital Sign VS Vital Signs Date Time Temp Pulse Resp B/P (MAP) Pulse Ox O2 Delivery O2 Flow Rate FiO2 04/12/25 01:22 98.2 92 16 112/71 97 Room Air 04/12/25 01:23 0 21 Physical Exam Dictation General: awake, alert, NAD morbidly obese very pleasant alcohol breath Head/Face: Normocephalic, atraumatic Eyes: PERRL, EOMI, vision at baseline ENT: oral cavity clear, TMs clear, no signs of infection Neck: Trachea midline, supple, no nuchal rigidity Cardiovascular: RRR, normal S1/S2, No MRGs, no JVD Respiratory: CTAB, no respiratory distress, No rales or wheezes Abdomen: Soft, non-tender, non-distended, normal bowel sounds, no guarding or rebound. Skin: Warm, dry, normal turgor, no rash MS/Extremity: Pulses equal, no cyanosis, neurovascular intact, FROM right knee do not see any obvious ecchymosis or swelling. Left heel some scraping but no obvious deformity seen. Neuro: COAx4, GCS 15, strength 5/5, CN 2-12 intact, normal cerebellar exam, normal gait, Psych: Normal behavior, mood, and affect normal Extremities-trace edema without any palpable cords, Homans sign is negative Results (Laboratory/Radiology) Labs Reviewed?: Yes ED Course ED Course Orders Procedure Category Date Status Time Ketorolac PHA 04/12/25 Complete Tromethamine 30mg/Ml 01:30 Methylprednisolone PHA 04/12/25 Complete Succ 125mg (Solu-Medr 02:00 Knee 3vws Rt RAD 04/12/25 Taken 01:41 Current Medications Medications (Trade) Dose Ordered Sig/Abraham Route PRN Reason Start Time Stop Time Status Last Admin Dose Admin Ketorolac Tromethamine (toRADol) 30 mg ONCE ONCE IM 04/12/25 01:30 04/12/25 01:31 DC 04/12/25 01:36 Methylprednisolone Sodium Succinate (Solu-medROL 125MG) 60 mg ONCE ONCE IM 04/12/25 02:00 04/12/25 02:01 DC 04/12/25 02:32 Vital Signs Date Time Temp Pulse Resp B/P (MAP) Pulse Ox O2 Delivery O2 Flow Rate FiO2 04/12/25 01:23 98.2 80 15 124/83 100 Room Air* 0 21 04/12/25 01:22 98.2 92 16 112/71 97 Room Air We will perform imaging and administer medications according to the patient's complaint. Once the results are available, will review and personally interpreted the labs to rule out any acute life-threatening emergency the trach require immediate intervention and treatment. I will then re-evaluate the patient after treatment and diagnostic exams have return to determine whether the patient requires any further testing, can safely be discharged home or need further admission to hospital for additional treatment and evaluation. Trial of NSAID and also a shot of steroid Medical Decision Making MDM Differential diagnosis: Contusion of the right knee, heme arthrosis, fracture, meniscus tear. Heel pain probably contusion or a hairline fracture Rationale: Tests considered and ordered secondary to shared decision making include: Previous outside records reviewed: Old ER visits. Risk of complication and/or morbidity or mortality of patient management: None Medications-Per medication reconciliation Need for hospitalization: Patient does not meet criteria for hospitalization. Need for emergency major/minor surgery: No There are no social concerns with this patient. Prescription drug management Prescriptions will include symptomatic care Patient's prior external medical records from other ER visits were reviewed by me as indicated. Prior testing and results from previous visits were reviewed. Prior tests were taken into account with medical decision making and resource utilization, independent historian/historians were used to obtain complete medical history. I independently interpreted the test that were performed, results were reviewed by me and considered findings on radiology if ordered. Medical management and examination interpretation discussions were had by me with other qualified healthcare professionals as indicated for the patient's care. Problem List Problem List: (1) Contusion of right knee (2) Fall on steps (3) Alcohol intoxication (4) Intractable left heel pain DX & DISP Disposition: Discharge Departure Impression: Primary Impression: Contusion of right knee Additional Impressions: Fall on steps, Alcohol intoxication, Intractable left heel pain, Hyperglycemia Condition: Stable Additional Instructions: Patient and the caregiver have been informed of all the diagnostic tests and the imaging conducted during the today's visit to the emergency room and has verbalized understanding of the results I have personally reviewed and interpreted all diagnostic exams performed here in the ER today as well as the vital signs documented by the nursing staff. The patient is now being discharged to home and should follow up with the primary care physician or the specialist as directed by the ER staff. Follow-up with primary care provider in 1 to 2 days. Take medications as directed here in the emergency room. Okay to continue home medications unless otherwise discussed during your visit in the emergency room today. Return to your nearest emergency room if symptoms worsen or if there is no improvement. Call 911 if you need immediate assistance. Take Tylenol or Motrin ove [id number] as needed and if no contraindications are present. Increase oral hydration. A wound culture or urine culture was ordered here in the emergency room department please follow-up with primary care provider and advise them to get repeat ports from our facility. If you had any Artemio wrap/splints that were applied here, please do not remove them until you see your primary care or specialty. Referrals: SHAINA LUIS (PCP) MAXIMILIAN DUARTE MD Apr 12, 2025 01:40
[2025-04-12 03:19] VITALS: BP 102/81; PULSE 82; RESP 15; TEMP 98.5; O2SAT 98
--- NOTE | 2025-04-12 04:52 | HMCIMG ---
EXAM: CR Right Knee, 3 views CLINICAL HISTORY: Pain. COMPARISON: Radiograph of the right knee dated 08/05/2022. FINDINGS: No acute fracture or aggressive appearing osseous lesion. Medial compartment predominant moderate tricompartmental knee joint osteoarthritis. There is no joint effusion appreciated. The soft tissues are unremarkable. IMPRESSION: No acute bony abnormality is evident. Medial compartment predominant moderate tricompartmental knee joint osteoarthritis, there is mild interval worsening in this finding compared with the previous radiograph dated 08/05/2022. /[place]
== END 2025-04-12 03:32 | disposition home or self-care (01) ==
LOC: EDH 01:21
DX: S80.01XA Contusion of right knee, initial encounter (principal); F10.129 Alcohol abuse with intoxication, unspecified; M79.672 Pain in left foot; E11.65 Type 2 diabetes mellitus with hyperglycemia; E78.00 Pure hypercholesterolemia, unspecified; F31.9 Bipolar disorder, unspecified; I10 Essential (primary) hypertension; Z79.1 Long term (current) use of non-steroidal anti-inflammatories (NSAID); W10.9XXA Fall (on) (from) unspecified stairs and steps, initial encounter; Y93.89 Activity, other specified; Y92.89 Other specified places as the place of occurrence of the external cause; Y99.8 Other external cause status; Y90.9 Presence of alcohol in blood, level not specified
CPT/HCPCS: 99284; 73562; 96372 ×2; J1885; J2919

== ENCOUNTER 2025-04-12 08:00 | Emergency (ER) | payer SELFPAY ==
[~2025-04-12] VITALS: Ht 180.3 cm; Wt 90.7 kg
[2025-04-12 08:33] LABS: IMMATURE GRANULOCYTE ABSOLUTE 0.05 K/uL (0-1); NUCLEATED RED BLOOD CELLS 0.0 % (0.0-0.19); PLATELET COUNT (AUTO) 305 K/uL (130-400); RED BLOOD CELL COUNT(AUTO) 4.84 MIL/uL (4.50-6.20); RED CELL DISTRIBUTION WIDTH 13.4 % (11.0-15.5); WHITE BLOOD COUNT (AUTO) 12.1 K/uL (4.8-10.8)
[2025-04-12 08:47] LABS: CREATININE 0.8 mg/dL (0.5-1.3); GLOMERULAR FILTR. RATE CALC 106.0 mL/min (>90); GLUCOSE,RANDOM 271.0 mg/dL (70-105); SODIUM SERUM 136.0 mmol/L (136-145); UREA NITROGEN, BLOOD 15.0 mg/dL (7-18)
--- NOTE | 2025-04-12 09:15 | ERN ---
ED Note History of Present Illness Stated Complaint: HIGH BLOOD SUGAR Chief Complaint: Blood Sugar Problem Time Seen by MD: 08:04 Dictation: 54-year-old male with high sugar readings at home in the 300s no symptoms no nausea vomiting patient reports that he is med compliant. Patient denies any chest pain shortness of breath or abdominal pain Allergies: Coded Allergies: No Known Allergies (Unverified Allergy, Unknown, 08/09/22) Home Meds Active Scripts Clotrimazole (Clotrimazole) 1 % Cream..g., 1 APPL TP BID for 7 Days, #30 GM 0 Refills WASH PENIS WITH SOAP AND WATER THOROUGHLY DRY, APPLY SMALL AMOUNT OF OINTMENT TO HEAD OF PENIS AND REPLACED FORESKIN TWICE A DAY FOR THE NEXT 7-10 DAYS. Prov:RAJAT ESTRADA MARKETING SUPPORT SPECIALIST 03/14/25 Ibuprofen (Motrin/Advil) 800 Mg Tab, 800 MG PO TID, #30 TAB Prov:SHERRELL MENON MD 09/21/22 Past Medical History Past Medical History: Diabetes-Type II, High Cholesterol, Hypertension Additional Past Medical Hx: MANIC DEPRESSION Surgical History: Other Surgical History Other: right knee arthroscopy Family History: Negative Social History: ETOH, Negative Review of System Dictation Constitutional: Negative for fever,chills, and weight loss Eyes: Negative for injury, pain,redness, and discharge ENT: Negative for injury,pain or swelling Cardiovascular: Negative for chest pain, palpitations, and edema Respiratory: Negative for shortness of breath, cough, and wheezing, Abdomen/GI: Negative for abdominal pain, nausea, vomiting, diarrhea, and constipation Back: Negative for injury and pain : Negative for injury, bleeding and discharge MS/Extremity: Negative for injury and deformity Skin: Negative for rash, and discoloration Neuro: Negative for headache, weakness, numbness, tingling, and seizure Psych: Negative for suicide ideation, homicidal ideation, and hallucinations Initial Vital Sign VS Vital Signs Date Time Temp Pulse Resp B/P (MAP) Pulse Ox O2 Delivery O2 Flow Rate FiO2 04/12/25 08:02 97.9 91 18 125/86 98 Room Air 04/12/25 08:35 0 21 Physical Exam Dictation General: awake, alert, NAD Head/Face: Normocephalic, atraumatic Eyes: PERRL, EOMI, vision at baseline ENT: oral cavity clear, TMs clear, no signs of infection Neck: Trachea midline, supple, no nuchal rigidity Cardiovascular: RRR, normal S1/S2, No MRGs, no JVD Respiratory: CTAB, no respiratory distress, No rales or wheezes Abdomen: Soft, non-tender, non-distended, normal bowel sounds, no guarding or rebound. Skin: Warm, dry, normal turgor, no rash MS/Extremity: Pulses equal, no cyanosis, neurovascular intact, FROM Neuro: COAx4, GCS 15, strength 5/5, CN 2-12 intact, normal cerebellar exam, normal gait, Psych: Normal behavior, mood, and affect normal Results (Laboratory/Radiology) Laboratory/Radiology Laboratory Tests Test 04/12/25 08:26 04/12/25 08:32 White Blood Count 12.1 K/uL (4.8-10.8) H Red Blood Count 4.84 MIL/uL (4.50-6.20) Hemoglobin 13.6 g/dL (14.0-18.0) L Hematocrit 41.1 % (42-54) L Mean Corpuscular Volume 84.9 fL (79-99) Mean Corpuscular Hemoglobin 28.1 pg (27.0-33.0) Mean Corpuscular Hemoglobin Concent 33.1 g/dL (32.0-36.0) Red Cell Distribution Width 13.4 % (11.0-15.5) Platelet Count 305 K/uL (130-400) Mean Platelet Volume 10.2 fL (7.5-10.5) Immature Granulocyte % (Auto) 0.4 % (0-1) Neutrophils (%) (Auto) 91.4 % (40.0-77.0) H Lymphocytes (%) (Auto) 6.9 % (21.0-51.0) L Monocytes (%) (Auto) 1.1 % (3.0-13.0) L Eosinophils (%) (Auto) 0.0 % (0.0-8.0) Basophils (%) (Auto) 0.2 % (0.0-5.0) Neutrophils # (Auto) 11.1 K/uL (1.8-7.7) H Lymphocytes # (Auto) 0.8 K/uL (1.0-4.8) L Monocytes # (Auto) 0.1 K/uL (0.1-1.0) Eosinophils # (Auto) 0.00 K/uL (0.00-0.70) Basophils # (Auto) 0.02 K/uL (0.00-0.20) Absolute Immature Granulocyte (auto 0.05 K/uL (0-1) Nucleated Red Blood Cells 0.0 % (0.0-0.19) Sodium Level 136 mmol/L (136-145) Potassium Level 4.1 mmol/L (3.5-5.1) Chloride Level 100 mmol/L (101-111) L Carbon Dioxide Level 24 mmol/L (21-32) Blood Urea Nitrogen 15 mg/dL (7-18) Creatinine 0.8 mg/dL (0.5-1.3) Glomerular Filtration Rate Calc 106 mL/min (>90) Random Glucose 271 mg/dL (70-105) H Total Calcium 8.7 mg/dL (8.5-10.1) Whole Blood Glucose 268 MG/DL (70-110) H ED Course ED Course Orders Procedure Category Date Status Time Random Accucheck At CPOE 04/12/25 Transmitted Bedside 08:05 Cbc With Differential LAB 04/12/25 In Process 08:05 Basic Metabolic Panel LAB 04/12/25 Complete 08:05 Vital Signs Date Time Temp Pulse Resp B/P (MAP) Pulse Ox O2 Delivery O2 Flow Rate FiO2 04/12/25 08:35 84 18 133/69 99 Room Air* 0 21 04/12/25 08:02 97.9 91 18 125/86 98 Room Air Medical Decision Making MDM MDM: Differential diagnosis: Rationale: Tests considered and ordered secondary to shared decision making include: Previous outside records reviewed: Old ER visits. Risk of complication and/or morbidity or mortality of patient management: None Medications-Per medication reconciliation Need for hospitalization: Patient does not meet criteria for hospitalization. Need for emergency major/minor surgery: No There are no social concerns with this patient. Prescription drug management Prescriptions will include symptomatic care Patient's prior external medical records from other ER visits were reviewed by me as indicated. Prior testing and results from previous visits were reviewed. Prior tests were taken into account with medical decision making and resource utilization, independent historian/historians were used to obtain complete medi iker history. I independently interpreted the test that were performed, results were reviewed by me and considered findings on radiology if ordered. Medical management and examination interpretation discussions were had by me with other qualified healthcare professionals as indicated for the patient's care. 54-year-old male with hyperglycemia, diabetic, no signs of DKA sugar in the 200s stable for discharge and advised to continue taking his medication as indicated. DX & DISP Disposition: Discharge Departure Impression: Primary Impression: Hyperglycemia Condition: Stable Referrals: SHAINA LUIS (PCP) JENNY BRASHER MD Apr 12, 2025 09:15
[2025-04-12 09:19] VITALS: BP 128/74; PULSE 76; RESP 19; TEMP 98.6; O2SAT 99
== END 2025-04-12 09:21 | disposition home or self-care (01) ==
LOC: EDH 08:00
DX: E11.65 Type 2 diabetes mellitus with hyperglycemia (principal); E78.00 Pure hypercholesterolemia, unspecified; F31.9 Bipolar disorder, unspecified; I10 Essential (primary) hypertension; Z79.1 Long term (current) use of non-steroidal anti-inflammatories (NSAID); Z96.651 Presence of right artificial knee joint
CPT/HCPCS: 36415; 80048; 82948; 85025; 99283

== ENCOUNTER 2025-04-24 22:14 | Emergency (ER) | payer SELFPAY ==
[~2025-04-24] VITALS: Ht 175.3 cm; Wt 90.7 kg
--- NOTE | 2025-04-24 22:34 | ERN ---
ED Note History of Present Illness Stated Complaint: RT KNEE PAIN, CHRONIC Chief Complaint: Knee Injury/Swelling Time Seen by MD: 22:31 Time Seen by Midlevel: 22:33 Dictation: Mr. Hancock is a 54 year old gentleman with history of hypertension, hyperli pidemia, type II DM, manic depression, and osteoarthritis who to the emergency department this evening for evaluation of knee pain. He reports history of chronic right knee pain having had a meniscus repair several years ago in [facility]. He states that he was exercising and he feels like it pops out of place. He states he has pain with ambulation. He has been wearing a compression type brace with no improvement. He has taken no analgesics. He states he usually goes who his PCP and is prescribed steroids. He denies additional injury. He denies fever, chills, shortness of breath, cough, chest pain, palpitations, edema, abdominal pain, nausea, vomiting, hematemesis, constipation, diarrhea, melena, hematochezia, dysuria, headache, dizziness, or focal weakness/paresthesia Allergies: Coded Allergies: No Known Allergies (Unverified Allergy, Unknown, 08/09/22) Emergency Care OIL SCOUT: None Home Meds Active Scripts Clotrimazole (Clotrimazole) 1 % Cream..g., 1 APPL TP BID for 7 Days, #30 GM 0 Refills WASH PENIS WITH SOAP AND WATER THOROUGHLY DRY, APPLY SMALL AMOUNT OF OINTMENT TO HEAD OF PENIS AND REPLACED FORESKIN TWICE A DAY FOR THE NEXT 7-10 DAYS. Prov:RAJAT ESTRADA NP 03/14/25 Ibuprofen (Motrin/Advil) 800 Mg Tab, 800 MG PO TID, #30 TAB Prov:SHERRELL MENON MD 09/21/22 Past Medical History Past Medical History: Diabetes-Type II, High Cholesterol, Hypertension Additional Past Medical Hx: MANIC DEPRESSION Surgical History: Other Surgical History Other: right knee arthroscopy Family History: Negative Social History: ETOH, Negative RN Note Reviewed/Agreed w/PFSH: Yes Review of System Dictation REVIEW OF SYSTEMS: CONSTITUTIONAL: Patient denies fevers, chills, sweats and weight changes. EYES: Patient denies any visual symptoms. EARS, NOSE, AND THROAT: No difficulties with hearing. No symptoms of rhinitis or sore throat. CARDIOVASCULAR: Patient denies chest pains, palpitations, orthopnea and paroxysmal nocturnal dyspnea. RESPIRATORY: No dyspnea on exertion, no wheezing or cough. GI: No nausea, vomiting, diarrhea, constipation, abdominal pain, hematochezia or melena. : No urinary hesitancy or dribbling. No nocturia or urinary frequency. No abnormal urethral discharge. MUSCULOSKELETAL: Reports right knee pain. NEUROLOGIC: No chronic headaches, no seizures. Patient denies numbness, tingling or weakness. PSYCHIATRIC: Patient denies problems with mood disturbance. No problems with anxiety. ENDOCRINE: No excessive urination or excessive thirst. DERMATOLOGIC: Patient denies any rashes or skin changes. Initial Vital Sign VS Vital Signs Date Time Temp Pulse Resp B/P (MAP) Pulse Ox O2 Delivery O2 Flow Rate FiO2 04/24/25 22:16 98.4 87 16 111/72 100 Room Air Physical Exam Dictation Vital signs: Reviewed. Constitutional: No acute distress. Uncomfortable Head/Face: Normocephalic, atraumatic. Eyes: Periorbital areas with no swelling, redness, or edema. Lids and lashes are normal. Conjunctival injection is absent. Sclera anicteric. Pupils equal, round, reactive to light. ENT: Pinnas intact and no signs of trauma or erythema. Ear canals clear and no discharge. TMs no erythema. No nasal discharge or bleeding noted. Oropharynx with no exudate, redness, swelling, masses, exudates, or evidence of obstruction. Uvula midline. Mucous membranes moist. Neck: Trachea midline, no masses palpated, and no cervical lymphadenopathy. No swelling. Supple, full range of motion. Chest/Axilla: No tenderness, no crepitus, no paradoxical movement, no retractions. Cardiovascular: Regular rate, regular rhythm, no murmur, no gallops. Symmetric pulses. No peripheral edema. Respiratory: Respirations even and unlabored. Lung sounds clear; no wheezes, rales or rhonchi. Gastrointestinal: Inspection is normal. No distention is appreciated. Bowel sounds are normal. No mass or organomegaly . There is no tenderness. No rebound. No rigidity. No voluntary or involuntary guarding. No Salinas's sign. Neurological: Normal speech, gross motor function intact, gross sensory function intact. No focal weakness/Paresthesia. Musculoskeletal/Extremities: All extremities have full range of motion. Pain with range of motion right knee There is tenderness upon palpation lateral aspect of right knee. No bony deformity or crepitus noted. He has good color, warmth, movement, and sensation to right toes. Capillary refill is brisk Integumentary: Intact. Skin is normal color, warm and dry. Cap refill less than 3 seconds. ED Course ED Course Orders Procedure Category Date Status Time Knee 3vws Rt RAD 04/24/25 Taken 22:32 Ketorolac 60mg/2ml PHA 04/24/25 Complete (Toradol 60mg/2ml) 23:00 Hydrocodone/Apap PHA 04/24/25 Complete 5/325 (Tyler 5/325mg) 23:00 Knee Immobilizer HAO 04/24/25 In Process 22:32 Current Medications Medications (Trade) Dose Ordered Sig/Abraham Route PRN Reason Start Time Stop Time Status Last Admin Dose Admin Acetaminophen/ Hydrocodone Bitart (NORco 5/325MG) 1 tab ONCE ONCE PO 04/24/25 23:00 04/24/25 23:01 DC Ketorolac Tromethamine (toRADol 60MG/ 2ML) 30 mg ONCE ONCE IM 04/24/25 23:00 04/24/25 23:01 DC Vital Signs Date Time Temp Pulse Resp B/P (MAP) Pulse Ox O2 Delivery O2 Flow Rate FiO2 04/24/25 22:16 98.4 87 16 111/72 100 Room Air Full ED course. Vital signs stable; afebrile and normotensive with room air SpO2 100%. Reports pain 7/10. Patient is able to ambulate. X-ray of the right knee unremarkable no dislocation or obvious fracture. He received doses Toradol and Tyler. He was placed in immobilizer. Neurovascular assessment unchanged. He was instructed to follow up with his primary care provider with possible referral to Orthopedics. Medical Decision Making MDM MDM: Differential diagnosis: Knee fracture, dislocation, exacerbation of chronic pain Rationale: Tests considered and ordered secondary to shared decision making include: X-ray, examination Previous outside records reviewed: Old ER visits. Risk of complication and/or morbidity or mortality of patient management: None Medications-Per medication reconciliation Need for hospitalization: Patient does not meet criteria for hospitalization. Need for emergency major/minor surgery: No There are no social concerns with this patient. Prescription drug management: Tylenol, ibuprofen, prednisone Prescriptions will include symptomatic care Patient's prior external medical records from other ER visits were reviewed by me as indicated. Prior testing and results from previous visits were reviewed. Prior tests were taken into account with medical decision making and resource utilization, independent historian/historians were used to obtain complete medical history. I independently interpreted the test that were performed, results were reviewed by me and considered findings on radiology if ordered. Medical management and examination interpretation discussions were had by me with other qualified healthcare professionals as indicated for the patient's care. DX & DISP Disposition: Discharge Departure Impression: Primary Impression: Sprain of right knee Additional Impression: Exacerbation of chronic knee pain Condition: Stable Scripts Ibuprofen (Ibuprofen) 600 Mg Tablet 600 MG PO Q6H PRN for PAIN, #15 TAB 0 Refills Prov: ANRDIA PENDLETON NP 04/24/25 Prednisone (Prednisone) 20 Mg Tablet 40 MG PO DAILYBKFST for 5 Days, #5 TAB 0 Refills Prov: ANDRIA PENDLETON NP 04/24/25 Additional Instructions: Rest, ice, elevation, wear knee immobilizer. Start prednisone daily x5 days. May take ibuprofen every 6 hours as needed for discomfort may alternate with [id number] Tylenol. We will need to follow up with your primary care provider for additional diagnostics and/or referral to orthopedic surgeon. Referrals: SHAINA LUIS (PCP) Time of Disposition: 23:24 ANDRIA PENDLETON NP Apr 24, 2025 22:33
--- NOTE | 2025-04-24 22:35 | NUR ---
PT OUTSIDE SMOKING
--- NOTE | 2025-04-24 23:18 | NUR ---
NO ACUTE DISTRESS NOTED. PT WALKING IN AND OUT OF LOBBY TO SMOKE. DRINKING COFFEE. GAIT WNL. GOOD EVEN CHEST RISE AND FALL OBSERVED
[2025-04-24] MEDS ORDERED: IBUP-1492 PO (23:23)
[2025-04-24] MEDS ORDERED: PRED20TA3 PO (23:23)
[2025-04-24] MEDS: HYDROcodone/APAP 5/325 1 TAB TABLET PO ONE (23:31)
--- NOTE | 2025-04-24 23:47 | NUR ---
KNEE IMMOBILIZER APPLIED, CRUTCHES PROVIDED. PT IS ABLE TO PROVIDE SUCCESFULL RETURN DEMONSTRATION
[2025-04-25] VITALS: BP 115/69; PULSE 86; RESP 18; TEMP 98.2; O2SAT 100
--- NOTE | 2025-04-25 00:56 | HMCIMG ---
EXAM: CR Right Knee, 3 views CLINICAL HISTORY: Pain. Swelling. COMPARISON: Radiograph of the right knee dated 04/12/2025. FINDINGS: No acute fracture or aggressive appearing osseous lesion. Mild osteopenia. Medial compartment predominant moderate tricompartmental knee joint osteoarthritis. There is no joint effusion appreciated. Mild enthesopathy around the distal quadriceps and patellar tendons. IMPRESSION: No acute bony abnormality is evident. Mild osteopenia. Medial compartment predominant moderate tricompartmental knee joint osteoarthritis. Compared to the prior study, there is no significant interval change. /[place]
== END 2025-04-25 00:13 | disposition home or self-care (01) ==
LOC: EDH 22:14
DX: S83.91XA Sprain of unspecified site of right knee, initial encounter (principal); G89.29 Other chronic pain; M25.561 Pain in right knee; E11.9 Type 2 diabetes mellitus without complications; E78.00 Pure hypercholesterolemia, unspecified; F31.9 Bipolar disorder, unspecified; I10 Essential (primary) hypertension; Z79.1 Long term (current) use of non-steroidal anti-inflammatories (NSAID); X58.XXXA Exposure to other specified factors, initial encounter; Y93.89 Activity, other specified; Y92.89 Other specified places as the place of occurrence of the external cause; Y99.8 Other external cause status
CPT/HCPCS: 99283; 29505; 73562; 96372; J1885

== ENCOUNTER → 2025-05-15 | Emergency (ER) | payer SELFPAY ==
[~2025-05-15] VITALS: Ht 172.7 cm; Wt 92.6 kg
[~2025-05-15] MED LIST changes: +CLIN-141 PO; +DIPH50CA38 PO; +IBUP-1492 PO; +IVER3 PO; +PRED20TA3 PO
[2025-05-15] MEDS: CLINDAMYCIN 150 MG CAP PO ONE (20:55)
--- NOTE | 2025-05-15 20:57 | ERN ---
ED Note History of Present Illness Stated Complaint: WOUND RT LEG Chief Complaint: Wound Check Time Seen by MD: 20:42 Dictation: PATIENT IS A 54-YEAR-OLD MALE COMING IN TODAY STATES HE JUST GOT OFF OF A SHRIMP BOTH BEING GONE FOR TWO WEEKS. HE SAID HE WAS WEARING TIGHT BOOTS AND HE HAS A AN ABRASION WITH SOME ERYTHEMA TO THE RIGHT MEDIAL CALF ANKLE. HE HAS HAD FOR THE LAST SEVERAL DAYS. NO FEVER NO CHILLS NO NAUSEA VOMITING. STATES HE HAS BEEN TREATING IT WITH PEROXIDE. ALSO, HE HAS A DIFFUSE ITCHY RASH HE HAS HAD FOR APPROXIMATELY 10 DAYS. HE STATES HE WAS OUT WITH THREE OTHER SHRIMPERS HER SLEEPING ON THE SAME MATTRESS WHO IS WITH THE SAME BLANKET. HAS BEEN TO SEE HIS PRIMARY CARE DOCTOR, DR. LUIS. BLOOD SUGAR TODAY WAS TO 0 FIVE HE IS COMPLIANT WITH HIS MEDICATIONS. Allergies: Coded Allergies: No Known Allergies (Unverified Allergy, Unknown, 08/09/22) Home Meds Active Scripts Ibuprofen (Ibuprofen) 600 Mg Tablet, 600 MG PO Q6H PRN for PAIN, #15 TAB 0 Refills Prov:ANDRIA PENDLETON NP 04/24/25 Prednisone (Prednisone) 20 Mg Tablet, 40 MG PO DAILYBKFST for 5 Days, #5 TAB 0 R efills Prov:ANDRIA PENDLETON NP 04/24/25 Clotrimazole (Clotrimazole) 1 % Cream..g., 1 APPL TP BID for 7 Days, #30 GM 0 Refills WASH PENIS WITH SOAP AND WATER THOROUGHLY DRY, APPLY SMALL AMOUNT OF OINTMENT TO HEAD OF PENIS AND REPLACED FORESKIN TWICE A DAY FOR THE NEXT 7-10 DAYS. Prov:RAJAT ESTRADA NP 03/14/25 Ibuprofen (Motrin/Advil) 800 Mg Tab, 800 MG PO TID, #30 TAB Prov:SHERRELL MENON MD 09/21/22 Past Medical History Past Medical History: Diabetes-Type II, High Cholesterol, Hypertension Additional Past Medical Hx: MANIC DEPRESSION Surgical History: Other Surgical History Other: right knee arthroscopy Family History: Negative Social History: ETOH, Negative RN Note Reviewed/Agreed w/PFSH: Yes Review of System Dictation NORMAL ROS CONSTITUTIONAL: NEGATIVE EXCEPT FOR HPI HEAD/FACE: NEGATIVE EXCEPT FOR HPI EENT: NEGATIVE EXCEPT FOR HPI RESPIRATORY: NEGATIVE EXCEPT FOR HPI GASTROINTESTINAL/ABDOMINAL: NEGATIVE EXCEPT FOR HPI GENITOURINARY: NEGATIVE EXCEPT FOR HPI MUSCULOSKELETAL: NEGATIVE EXCEPT FOR HPI ERYTHEMA TENDERNESS TO RIGHT MEDIAL ANKLE CALF AREA. INTEGUMENTARY: NEGATIVE EXCEPT FOR HPI PRURITIC RASH TO BODY DISCRETE MACULAR NEUROLOGICAL/PSYCH: NEGATIVE EXCEPT FOR HPI HEMATOLOGIC/LYMPHATIC: NEGATIVE EXCEPT FOR HPI ALL SYSTEMS NEGATIVE, EXCEPT NOTED ABOVE. 13 POINT REVIEW OF SYSTEMS ASSESSED AND ALL NEGATIVE EXCEPT FOR ABOVE. Initial Vital Sign VS Vital Signs Date Time Temp Pulse Resp B/P (MAP) Pulse Ox O2 Delivery O2 Flow Rate FiO2 05/15/25 20:38 98.8 100 20 101/64 96 Room Air Physical Exam Dictation VITAL SIGNS REVIEWED GENERAL APPEARANCE: ALERT, ORIENTED X 3, MILD ACUTE DISTRESS, WELL DEVELOPED, NOURISHED. HEAD AND FACE: NON-TRAUMATIC. EYES: PERRL, PINK CONJUNCTIVAS, EYELID NO TRAUMA, ANTERIOR CHAMBER WITH ARCUS SENILIS. EARS: PINNAS INTACT AND NO SIGNS OF TRAUMA OR ERYTHEMA EAR CANALS CLEAR AND NO DISCHARGE TM NO ERYTHEMA NOSE: NO DISCHARGE, NO BLEEDING. OROPHARYNX: MOUTH NORMAL, TONGUE PINK, PHARYNX CLEAR,NO ERYTHEMA, TONSILS NO EXUDATES, NO ABSCESSES NOTED, MUCOUS MEMBRANE MOIST NECK: SUPPLE, NON-TENDER, NO THYROMEGALY, NO MASSES, NO JVD, NO BRUITS BREAST:DEFERRED CHEST:NO TENDERNESS, NO CREPITUS, NO PARADOXICAL MOVEMENT, NO RETRACTIONS LUNGS:CLEAR, WELL-VENTILATED, SYMMETRIC, NO RALES, NO WHEEZING, NO RHONCHI, NO STRIDOR, GOOD BREATH SOUNDS BILATERALLY HEART: REGULAR RATE, REGULAR RHYTHM, NO MURMUR, NO GALLOPS VASCULAR: NO PERIPHERAL EDEMA, ABDOMEN: SOFT, POSITIVE BOWEL SOUNDS, NONDISTENDED, NO GUARDING, NONTENDER, NO REBOUND, NO MASSES NO HEPATOMEGALY, NO SPLENOMEGALY, NO MCCARTHY'S SIGN, NO HERNIAS. RECTAL: DEFERRED GENITAL: DEFERRED NEUROLOGICAL: NORMAL SPEECH, MOTOR FUNCTION INTACT, SENSORY FUNCTION INTACT MUSCULOSKELETAL: NECK NONTENDER, FULL RANGE OF MOTION, BACK NONTENDER, FULL RANGE OF MOTION, EXTREMITIES: ABRASION WITH MILD ERYTHEMA TO THE RIGHT MEDIAL ANKLE CALF AREA. NO INDURATION NO SWELLING NO MILDLY TENDER. SKIN: COLOR DIFFUSE MACULAR RASH THAT IS PRURITIC TO HIS THORAX KNEES BACK UNDER ARMS. IT IS ALSO IN THE FINGERS AND HANDS. LYMPHATIC: DEFERRED Results (Laboratory/Radiology) Labs Reviewed?: Yes ED Course ED Course Orders Procedure Category Date Status Time Ketorolac 60mg/2ml PHA 05/15/25 Transmitted (Toradol 60mg/2ml) 21:00 Clindamycin 150mg Cap PHA 05/15/25 Transmitted (Cleocin 150mg Cap 21:00 Vital Signs Date Time Temp Pulse Resp B/P (MAP) Pulse Ox O2 Delivery O2 Flow Rate FiO2 05/15/25 20:38 98.8 100 20 101/64 96 Room Air 2049/PATIENT WILL BE TREATED EMPIRICALLY FOR POSSIBLE EARLY CELLULITIS TO HIS RIGHT ANKLE. HE WAS LOADED WITH CLINDAMYCIN AND GIVEN TORADOL HE WILL BE SENT HOME WITH CLINDAMYCIN STROMECTOL FOR SCABIES. Medical Decision Making MDM MEDICAL DECISION-MAKING BASED ON EMPIRIC TREATMENT FOR SCABIES AND A AN ABRASION TO A DIABETIC MALE. PATIENT WAS LOADED WITH CLINDAMYCIN DUE TO NO FEVER NO CHILLS. HE WILL BE SENT HOME WITH CLINDAMYCIN AND TOLD TO AVOID THE TIGHT-FITTING SHOES UNTIL HE IS CLEARED BY HIS DOCTOR ON SUNDAY. HE WAS PRESCRIBEDSTRMECTOL FOR SCABIES TOLD TO WASH ALL BED LINENS AND CLOTHES IN HOT WATER HE IS AWARE THAT SCABIES IS CONTAGIOUS IN HIS IS AT THE BEDSIDE. DX & DISP Disposition: Discharge Departure Impression: Primary Impression: Ankle abrasion with infection Additional Impression: Scabies infestation Condition: Stable Scripts Diphenhydramine HCl (Benadryl) 50 Mg Cap 50 MG PO Q6H for itching/rash, #20 CAP 0 Refills Prov: RAJAT ESTRADA NP 05/15/25 Ivermectin (Stromectol) 3 Mg Tab 6 TAB PO ONCE, #12 TAB 0 Refills TAKE SIX TABLETS BY MOUTH X1 DOSE MAY REPEAT DOSE IN 10 DAYS Prov: RAJAT ESTRADA NP 05/15/25 Clindamycin HCl (Clindamycin HCl) 300 Mg Capsule 1 CAP PO QID for 10 Days, #40 CAP 0 Refills Prov: RAJAT ESTRADA NP 05/15/25 Additional Instructions: FOLLOW-UP WITH PRIMARY CARE PROVIDER IN 1 TO 2 DAYS. TAKE MEDICATIONS DIRECTED HERE IN THE EMERGENCY ROOM. OKAY TO CONTINUE HOME MEDICATIONS UNLESS OTHERWISE DISCUSSED DURING YOUR VISIT IN THE EMERGENCY ROOM TODAY. RETURN TO YOUR NEAREST EMERGENCY ROOM IF SYMPTOMS WORSEN OR IF THERE IS NO IMPROVEMENT. CALL 911 IF YOU NEED IMMEDIATE ASSISTANCE. TAKE TYLENOL OR MOTRIN [id number] NEEDED AND IF NO CONTRAINDICATIONS ARE PRESENT. INCREASE ORAL HYDRATION. A WOUND CULTURE OR URINE CULTURE WAS ORDERED HERE IN THE EMERGENCY ROOM DEPARTMENT PLEASE FOLLOW-UP WITH PRIMARY CARE PROVIDER AND ADVISE THEM TO GET REPEAT PORTS FROM OUR FACILITY. IF YOU HAD ANY PRATIBHA WRAP/SPLINTS THAT WERE APPLIED HERE, PLEASE DO NOT REMOVE THEM UNTIL YOU SEE YOUR PRIMARY CARE OR SPECIALTY. TAKE CLINDAMYCIN DIRECTED UNTIL GONE. TAKE STROMECTOL DIRECTED AND MAY REPEAT DOSE IN 10 DAYS FOR SCABIES. TAKE BENADRYL DIRECTED FOR ITCHING. DO NOT WEAR ANY TIGHT-FITTING SHOES OR BOOTS TO YOUR RIGHT ANKLE TO YOU SEE YOUR DOCTOR ON SUNDAY. BE SURE TO WASH YOUR BED CLOSED LINENS AFTER YOU TREAT HERSELF FOR SCABIES. SCABIES OR VERY CONTAGIOUS AND FOLLOW UP WITH YOUR DOCTOR ANYBODY THAT NO YOU AND HAS A RASH OR DEVELOPS A RASH WITH ITCHING. Referrals: SHAINA LUIS (PCP) Time of Disposition: 20:52 I have reviewed the case, and I agree with, Diagnosis and Plan RAJAT ESTRADA NP May 15, 2025 20:57
[2025-05-15 21:07] VITALS: BP 110/67; PULSE 98; RESP 18; TEMP 98.6; O2SAT 97
== END ==
LOC: EDH 20:36
DX: S90.511A Abrasion, right ankle, initial encounter (principal); B86 Scabies; E11.9 Type 2 diabetes mellitus without complications; E78.00 Pure hypercholesterolemia, unspecified; F31.9 Bipolar disorder, unspecified; I10 Essential (primary) hypertension; Z79.1 Long term (current) use of non-steroidal anti-inflammatories (NSAID); X58.XXXA Exposure to other specified factors, initial encounter; Y93.89 Activity, other specified; Y92.89 Other specified places as the place of occurrence of the external cause; Y99.8 Other external cause status
CPT/HCPCS: 99283; 96372; J1885

== ENCOUNTER 2025-05-28 21:36 | Emergency (ER) | payer SELFPAY ==
[~2025-05-28] VITALS: Ht 167.6 cm; Wt 72.6 kg
[2025-05-28 22:19] LABS: IMMATURE GRANULOCYTE ABSOLUTE 0.10 K/uL (0-1); NUCLEATED RED BLOOD CELLS 0.0 % (0.0-0.19); PLATELET COUNT (AUTO) 298 K/uL (130-400); RED BLOOD CELL COUNT(AUTO) 4.05 MIL/uL (4.50-6.20); RED CELL DISTRIBUTION WIDTH 13.2 % (11.0-15.5); WHITE BLOOD COUNT (AUTO) 12.1 K/uL (4.8-10.8)
[2025-05-28 22:35] LABS: ADD UA MICROSCOPIC YES; APPEARANCE,URINE CLEAR (CLEAR); GLUCOSE, URINE (UA) >=1000 mg/dL (NEGATIVE); LEUKOCYTE ESTERASE ,URINE NEGATIVE Leu/uL (NEGATIVE); NITRATE,URINE NEGATIVE (NEGATIVE); OCCULT BLOOD,URINE NEGATIVE (NEGATIVE)
[2025-05-28 22:36] LABS: CREATININE 1.0 mg/dL (0.5-1.3); GLOMERULAR FILTR. RATE CALC 91.0 mL/min (>90); GLUCOSE,RANDOM 303.0 mg/dL (70-105); SODIUM SERUM 136.0 mmol/L (136-145); UREA NITROGEN, BLOOD 9.0 mg/dL (7-18)
[2025-05-28 22:37] LABS: SQUAMOUS EPITHELIAL CELL,UR RARE /HPF (0-2)
--- NOTE | 2025-05-28 22:40 | ERN ---
ED Note History of Present Illness Stated Complaint: HYPERGLYCEMIA Chief Complaint: Hyperglycemia Time Seen by MD: 21:51 Dictation: This is a 54-year-old male who presented to the emergency room stating that his sugars have been running high and when he checked at home they were 465. He also stated that he fell and scraped his right knee he stated that he had his knee brace on so he did not get hurt too much but was complaining of right knee pain. No loss of consciousness no seizure activity no blurred vision diplopia motor weakness He stated that his primary care physician is planning to start him on insulin and he is waiting for the prescription to be filled at the pharmacy Temperature 98.8 pulse 65 respirations 16 blood pressure 107/66 with a pulse oximetry of 96% on room air Chronic medical problems include diabetes mellitus, hypertension, hypercholesterolemia and manic depressive disorder. Allergies: Coded Allergies: No Known Allergies (Unverified Allergy, Unknown, 08/09/22) Home Meds Active Scripts Diphenhydramine HCl (Benadryl) 50 Mg Cap, 50 MG PO Q6H for itching/rash, #20 CAP 0 Refills Prov:RAJAT ESTRADA [facility] 05/15/25 Ivermectin (Stromectol) 3 Mg Tab, 6 TAB PO ONCE, #12 TAB 0 Refills TAKE SIX TABLETS BY MOUTH X1 DOSE MAY REPEAT DOSE IN 10 DAYS Prov:RAJAT ESTRADA [facility] 05/15/25 Clindamycin HCl (Clindamycin HCl) 300 Mg Capsule, 1 CAP PO QID for 10 Days, #40 CAP 0 Refills Prov:RAJAT ESTRADA [facility] 05/15/25 Ibuprofen (Ibuprofen) 600 Mg Tablet, 600 MG PO Q6H PRN for PAIN, #15 TAB 0 Refills Prov:ANDRIA PENDLETON [facility] 04/24/25 Prednisone (Prednisone) 20 Mg Tablet, 40 MG PO DAILYBKFST for 5 Days, #5 TAB 0 Refills Prov:ANDRIA PENDLETON [facility] 04/24/25 Clotrimazole (Clotrimazole) 1 % Cream..g., 1 APPL TP BID for 7 Days, #30 GM 0 Refills WASH PENIS WITH SOAP AND WATER THOROUGHLY DRY, APPLY SMALL AMOUNT OF OINTMENT TO HEAD OF PENIS AND REPLACED FORESKIN TWICE A DAY FOR THE NEXT 7-10 DAYS. Prov:RAJAT ESTRADA [facility] 03/14/25 Ibuprofen (Motrin/Advil) 800 Mg Tab, 800 MG PO TID, #30 TAB Prov:SHERRELL MENON MD 09/21/22 Past Medical History Past Medical History: Diabetes-Type II, High Cholesterol, Hypertension Additional Past Medical Hx: MANIC DEPRESSION Surgical History: Other Surgical History Other: right knee arthroscopy Family History: Negative Social History: ETOH, Negative RN Note Reviewed/Agreed w/PFSH: Yes Review of System Dictation Constitutional: Negative for fever,chills, and weight loss positive for high sugars Eyes: Negative for injury, pain,redness, and discharge ENT: Negative for injury,pain or swelling Cardiovascular: Negative for chest pain, palpitations, and edema Respiratory: Negative for shortness of breath, cough, and wheezing, Abdomen/GI: Negative for abdominal pain, nausea, vomiting, diarrhea, and constipation Back: Negative for injury and pain : Negative for injury, bleeding and discharge MS/Extremity: Positive for injury and swelling of right knee associated with pain Skin: Negative for rash, and discoloration Neuro: Negative for headache, weakness, numbness, tingling, and seizure Psych: Negative for suicide ideation, homicidal ideation, and hallucinations Initial Vital Sign VS Vital Signs Date Time Temp Pulse Resp B/P (MAP) Pulse Ox O2 Delivery O2 Flow Rate FiO2 05/28/25 21:55 98.8 65 16 107/66 96 Room Air* 0 21 Physical Exam Dictation General: awake, alert, NAD Head/Face: Normocephalic, atraumatic Eyes: PERRL, EOMI, vision at baseline ENT: oral cavity clear, TMs clear, no signs of infection Neck: Trachea midline, supple, no nuchal rigidity Cardiovascular: RRR, normal S1/S2, No MRGs, no JVD Respiratory: CTAB, no respiratory distress, No rales or wheezes Abdomen: Soft, non-tender, non-distended, normal bowel sounds, no guarding or rebound. Skin: Warm, dry, normal turgor, no rash MS/Extremity: Pulses equal, no cyanosis, neurovascular intact, FROM mild swelling of the right knee with a abrasion, no obvious deformity open wounds or bleeding noted. Neuro: COAx4, GCS 15, strength 5/5, CN 2-12 intact, normal cerebellar exam, normal gait, Psych: Normal behavior, mood, and affect normal Extremities-trace edema without any palpable cords, Homans sign is negative Results (Laboratory/Radiology) Laboratory/Radiology Laboratory Tests Test 05/28/25 22:07 05/28/25 22:09 05/28/25 23:58 White Blood Count 12.1 K/uL (4.8-10.8) H Red Blood Count 4.05 MIL/uL (4.50-6.20) L Hemoglobin 11.5 g/dL (14.0-18.0) L Hematocrit 34.4 % (42-54) L Mean Corpuscular Volume 84.9 fL (79-99) Mean Corpuscular Hemoglobin 28.4 pg (27.0-33.0) Mean Corpuscular Hemoglobin Concent 33.4 g/dL (32.0-36.0) Red Cell Distribution Width 13.2 % (11.0-15.5) Platelet Count 298 K/uL (130-400) Mean Platelet Volume 10.4 fL (7.5-10.5) Immature Granulocyte % (Auto) 0.8 % (0-1) Neutrophils (%) (Auto) 64.3 % (40.0-77.0) Lymphocytes (%) (Auto) 25.1 % (21.0-51.0) Monocytes (%) (Auto) 6.7 % (3.0-13.0) Eosinophils (%) (Auto) 2.6 % (0.0-8.0) Basophils (%) (Auto) 0.5 % (0.0-5.0) Neutrophils # (Auto) 7.8 K/uL (1.8-7.7) H Lymphocytes # (Auto) 3.0 K/uL (1.0-4.8) Monocytes # (Auto) 0.8 K/uL (0.1-1.0) Eosinophils # (Auto) 0.32 K/uL (0.00-0.70) Basophils # (Auto) 0.06 K/uL (0.00-0.20) Absolute Immature Granulocyte (auto 0.10 K/uL (0-1) Nucleated Red Blood Cells 0.0 % (0.0-0.19) Sodium Level 136 mmol/L (136-145) Potassium Level 4.0 mmol/L (3.5-5.1) Chloride Level 97 mmol/L (101-111) L Carbon Dioxide Level 28 mmol/L (21-32) Blood Urea Nitrogen 9 mg/dL (7-18) Creatinine 1.0 mg/dL (0.5-1.3) Glomerular Filtration Rate Calc 91 mL/min (>90) Random Glucose 303 mg/dL (70-105) H Whole Blood Ketones Quantitative 0.1 mmol/L (0.0-0.6) Lactic Acid Level 3.1 mmol/L (0.8-2.5) H Total Calcium 8.6 mg/dL (8.5-10.1) Urine Color LIGHT-YELLOW (YELLOW) Urine Appearance CLEAR (CLEAR) Urine pH 6.5 (5.0-8.0) Urine Specific [place] 1.013 (1.001-1.031) Urine Protein NEGATIVE mg/dL (NEGATIVE) Urine Glucose (UA) >=1000 mg/dL (NEGATIVE) H Urine Ketones NEGATIVE mg/dL (NEGATIVE) Urine Occult Blood NEGATIVE (NEGATIVE) Urine Nitrate NEGATIVE (NEGATIVE) Urine Bilirubin NEGATIVE mg/dL (NEGATIVE) Urine Urobilinogen 0.2 mg/dL (0.2-1.0) Urine Leukocyte Esterase NEGATIVE Long/uL Urine RBC None /HPF (0-1) Urine WBC 0-1 /HPF (0-1) Urine Squamous Epithelial Cells RARE /HPF (0-2) Urine Bacteria RARE /HPF (None Seen) Whole Blood Glucose 214 MG/DL (70-110) H Labs Reviewed?: Yes ED Course ED Course Orders Procedure Category Date Status Time Cbc With Differential LAB 05/28/25 Complete 21:52 Basic Metabolic Panel LAB 05/28/25 Complete 21:52 Ketone Blood LAB 05/28/25 Complete Quantitative 21:52 Urinalysis Profile LAB 05/28/25 Complete 21:52 Lactic Acid LAB 05/28/25 Complete 21:52 0.9%Nacl 1000ml (Ns PHA 05/28/25 Complete 1000ml) 22:00 Ketorolac PHA 05/28/25 Complete Tromethamine 30mg/Ml 23:30 Insulin Regular, PHA 05/28/25 Complete Human 3ml (Humulin R 23:30 Current Medications Medications (Trade) Dose Ordered Sig/Abraham Route PRN Reason Start Time Stop Time Status Last Admin Dose Admin Insulin Human Regular (humuLIN R 100 UNIT/ML 3ML) 8 unit ONCE ONCE SQ 05/28/25 23:30 05/28/25 23:31 DC Ketorolac Tromethamine (toRADol) 30 mg ONCE ONCE IVP 05/28/25 23:30 05/28/25 23:31 DC 05/29/25 00:03 Sodium Chloride 1,000 ml @ 0 mls/hr ONCE ONCE IV 05/28/25 22:00 05/28/25 22:01 DC 05/28/25 23:00 Vital Signs Date Time Temp Pulse Resp B/P (MAP) Pulse Ox O2 Delivery O2 Flow Rate FiO2 05/29/25 00:38 98.8 67 16 117/78 96 Room Air* 0 21 05/29/25 00:16 65 15 111/77 96 Room Air* 0 21 05/28/25 22:55 63 16 104/63 96 Room Air* 0 21 05/28/25 21:55 98.8 65 16 107/66 96 Room Air* 0 21 We will perform diagnostic labs, and administer medications according to the patient's complaint. Once the results are available, will review and personally interpreted the labs to rule out any acute life-threatening emergency the trach require immediate intervention and treatment. I will then re-evaluate the angela ent after treatment and diagnostic exams have return to determine whether the patient requires any further testing, can safely be discharged home or need further admission to hospital for additional treatment and evaluation. Medical Decision Making MDM Differential diagnosis: Diabetes mellitus with hyperglycemia, diabetic ketoacidosis, dehydration, lactic acidosis This is a 54-year-old male who presented to the emergency room stating that his sugars have been running high and when he checked at home they were 465. He also stated that he fell and scraped his right knee he stated that he had his knee brace on so he did not get hurt too much but was complaining of right knee pain. No loss of consciousness no seizure activity no blurred vision diplopia motor weakness He stated that his primary care physician is planning to start him on insulin and he is waiting for the prescription to be filled at the pharmacy Temperature 98.8 pulse 65 respirations 16 blood pressure 107/66 with a pulse oximetry of 96% on room air Chronic medical problems include diabetes mellitus, hypertension, hyperchol esterolemia and manic depressive disorder. 10:40 [place] [address] hemoglobin 11.5 platelets 295. BNP 7 showed a sugar of 303. Lactic acid is 3.1 serum ketones 0.1 urinalysis showed some glycosuria. Patient received 2 L of IV fluids and a repeat Accu-Chek was 214. At this point the plans to administer insulin were aborted. Patient to follow up with his primary care physician for optimizing his glycemic control Rationale: Tests considered and ordered secondary to shared decision making include: Previous outside records reviewed: Old ER visits. Risk of complication and/or morbidity or mortality of patient management: None Medications-Per medication reconciliation Need for hospitalization: Patient does not meet criteria for hospitalization. Need for emergency major/minor surgery: No There are no social concerns with this patient. Prescription drug management Prescriptions will include symptomatic care Patient's prior external medical records from other ER visits were reviewed by me as indicated. Prior testing and results from previous visits were reviewed. Prior tests were taken into account with medical decision making and resource utilization, independent historian/historians were used to obtain complete medical history. I independently interpreted the test that were performed, results were reviewed by me and considered findings on radiology if ordered. Medical management and examination interpretation discussions were had by me with other qualified healthcare professionals as indicated for the patient's care. Problem List Problem List: (1) Diabetes mellitus with hyperglycemia (2) Hyperglycemia (3) Right knee pain (4) Dehydration DX & DISP Disposition: Discharge Departure Impression: Primary Impression: Diabetes mellitus with hyperglycemia Additional Impressions: Right knee pain, Dehydration, Drug abuse Condition: Stable Additional Instructions: Patient and the caregiver have been informed of all the diagnostic tests and the imaging conducted during the today's visit to the emergency room and has verba lized understanding of the results I have personally reviewed and interpreted all diagnostic exams performed here in the ER today as well as the vital signs documented by the nursing staff. The patient is now being discharged to home and should follow up with the primary care physician or the specialist as directed by the ER staff. Follow-up with primary care provider in 1 to 2 days. Take medications as directed here in the emergency room. Okay to continue home medications unless otherwise discussed during your visit in the emergency room today. Return to your nearest emergency room if symptoms worsen or if there is no improvement. Call 911 if you need immediate assistance. Take Tylenol or Motrin [id number] as needed and if no contraindications are present. Increase oral hydration. A wound culture or urine culture was ordered here in the emergency room department please follow-up with primary care provider and advise them to get repeat ports from our facility. If you had any Artemio wrap/splints t hat were applied here, please do not remove them until you see your primary care or specialty. Patient has a regular appointment with primary care physician he is to start insulin soon Referrals: SHAINA LUIS (PCP) MAXIMILIAN DUARTE MD May 28, 2025 22:40
[2025-05-28] MEDS: 0.9%NACL 1000ML 1,000 ML IV ONE (23:00)
--- NOTE | 2025-05-29 | NUR ---
GLUCOSE CHECK RESULT OF 214 RELAYED TO ED MD DUARTE . PER ED MD OCONNORU INSULIN IS TO BE HELD. PT CLEARED FOR DISCHARGE WHEN FLUIDS ARE DONE.
[2025-05-29 00:38] VITALS: BP 117/78; PULSE 67; RESP 16; TEMP 98.8; O2SAT 96
== END 2025-05-29 00:44 | disposition home or self-care (01) ==
LOC: EDH 21:36
DX: E11.65 Type 2 diabetes mellitus with hyperglycemia (principal); E86.0 Dehydration; F19.10 Other psychoactive substance abuse, uncomplicated; M25.561 Pain in right knee; I10 Essential (primary) hypertension; E78.00 Pure hypercholesterolemia, unspecified; F32.A Depression, unspecified; Z79.1 Long term (current) use of non-steroidal anti-inflammatories (NSAID); Z79.899 Other long term (current) drug therapy
CPT/HCPCS: 36415; 80048; 81001; 82010; 82948; 83605; 85025; 96361; 96374; 96375; 99283; J1885

== ENCOUNTER 2025-06-20 03:13 | Emergency (ER) | payer SELFPAY ==
[~2025-06-20] VITALS: Ht 172.7 cm; Wt 85.7 kg
[2025-06-20 04:07] LABS: IMMATURE GRANULOCYTE ABSOLUTE 0.07 K/uL (0-1); NUCLEATED RED BLOOD CELLS 0.0 % (0.0-0.19); PLATELET COUNT (AUTO) 301 K/uL (130-400); RED BLOOD CELL COUNT(AUTO) 5.04 MIL/uL (4.50-6.20); RED CELL DISTRIBUTION WIDTH 13.8 % (11.0-15.5); WHITE BLOOD COUNT (AUTO) 16.0 K/uL (4.8-10.8)
[2025-06-20 04:12] LABS: APPEARANCE,URINE CLEAR (CLEAR); GLUCOSE, URINE (UA) NEGATIVE (NEGATIVE); LEUKOCYTE ESTERASE ,URINE NEGATIVE Leu/uL (NEGATIVE); NITRATE,URINE NEGATIVE (NEGATIVE); OCCULT BLOOD,URINE NEGATIVE (NEGATIVE)
[2025-06-20 04:13] LABS: ADD UA MICROSCOPIC YES
[2025-06-20 04:14] LABS: CREATININE 0.8 mg/dL (0.5-1.3); GLOMERULAR FILTR. RATE CALC 106.0 mL/min (>90); GLUCOSE,RANDOM 158.0 mg/dL (70-105); SODIUM SERUM 137.0 mmol/L (136-145); SQUAMOUS EPITHELIAL CELL,UR RARE /HPF (0-2); UREA NITROGEN, BLOOD 12.0 mg/dL (7-18)
[2025-06-20 04:15] LABS: ALCOHOL, BLOOD 4.0 mg/dL (0-10)
[2025-06-20 04:20] LABS: AMPHET/METH SCREEN,URINE NEGATIVE (NEGATIVE); BARBITURATE SCREEN, URINE NEGATIVE (NEGATIVE); CANNABINOID SCREEN,URINE POSITIVE (NEGATIVE); COCAINE SCREEN,URINE POSITIVE (NEGATIVE)
[2025-06-20 05:55] VITALS: BP 122/56; PULSE 70; RESP 20; TEMP 98.8; O2SAT 98
--- NOTE | 2025-06-20 06:17 | HMCIMG ---
EXAM: CR Right Knee, 3 views CLINICAL HISTORY: Pain. COMPARISON: Radiograph of the right knee dated 04/24/2025. FINDINGS: No acute fracture or aggressive appearing osseous lesion. Lateral compartment predominant moderate tricompartmental knee joint osteoarthritis. No suprapatellar effusion. Distal quadriceps enthesopathy. IMPRESSION: No acute bony abnormality is evident. Lateral compartment predominant moderate tricompartmental knee joint osteoarthritis. Compared to the prior study, there is no significant interval change. /[place]
--- NOTE | 2025-06-20 06:25 | ERN ---
General Chief Complaint: Knee Injury/Swelling Stated Complaint: R KNEE PAIN S/P FALL -LOC, -ANTICOAGULANTS Time Seen by MD: 03:18 History of Present Illness Initial Comments 54-year-old male came in for right knee pain after fall. Patient denies head injury or loss of consciousness. Patient is able to ambulate states that his knee has been hurting. Patient otherwise has no concerns. Allergies: Coded Allergies: No Known Allergies (Unverified Allergy, Unknown, 08/09/22) Home Meds Active Scripts Diphenhydramine HCl (Benadryl) 50 Mg Cap, 50 MG PO Q6H for itching/rash, #20 CAP 0 Refills Prov:NATALIERAJAT Urias [facility] 05/15/25 Ivermectin (Stromectol) 3 Mg Tab, 6 TAB PO ONCE, #12 TAB 0 Refills TAKE SIX TABLETS BY MOUTH X1 DOSE MAY REPEAT DOSE IN 10 DAYS Prov:RAJAT ESTRADA [facility] 05/15/25 Clindamycin HCl (Clindamycin HCl) 300 Mg Capsule, 1 CAP PO QID for 10 Days, #40 CAP 0 Refills Prov:RAJAT ESTRADA [facility] 05/15/25 Ibuprofen (Ibuprofen) 600 Mg Tablet, 600 MG PO Q6H PRN for PAIN, #15 TAB 0 Refills Prov:ANDRIA PENDLETON [facility] 04/24/25 Prednisone (Prednisone) 20 Mg Tablet, 40 MG PO DAILYBKFST for 5 Days, #5 TAB 0 Refills Prov:ANDRIA PENDLETON [facility] 04/24/25 Clotrimazole (Clotrimazole) 1 % Cream..g., 1 APPL TP BID for 7 Days, #30 GM 0 Refills WASH PENIS WITH SOAP AND WATER THOROUGHLY DRY, APPLY SMALL AMOUNT OF OINTMENT TO HEAD OF PENIS AND REPLACED FORESKIN TWICE A DAY FOR THE NEXT 7-10 DAYS. Prov:RAJAT ESTRADA [facility] 03/14/25 Ibuprofen (Motrin/Advil) 800 Mg Tab, 800 MG PO TID, #30 TAB Prov:SHERRELL MENON MD 09/21/22 Past Medical History Past Medical History: Bipolar, Diabetes-Type II, High Cholesterol, Hypertension Medical History Other: OSTEOPOROSIS, PTSD, NEUROPATHY BILATERAL FEET Past Surgical History: Other Surgical History Other: right knee arthroscopy Family History Family History: Negative Social History Social History: ETOH, Negative ROS Dictation Knee pain Physical Exam General Appearance: (+) no apparent distress Orientation: (+) alert, (+) oriented x 3 Neck: (+) normal inspection, (+) supple Respiratory: (+) chest non-tender, (+) lungs clear Heart: (+) regular, (+) no gallop Gastrointestinal: (+) soft, (+) non-tender, (+) no organomegaly, (+) bowel sound present Extremities: (+) normal range of motion Neurologic/Psychiatric: (+) normal speech, (+) no motor defecits, (+) no sensory deficits, (+) aircraft painter II-XII nml as tested, (+) normal gait Results Laboratory and Microbiology Lab and Micro Result Laboratory Tests Test 06/20/25 03:42 White Blood Count 16.0 K/uL (4.8-10.8) H Red Blood Count 5.04 MIL/uL (4.50-6.20) Hemoglobin 14.2 g/dL (14.0-18.0) Hematocrit 43.2 % (42-54) Mean Corpuscular Volume 85.7 fL (79-99) Mean Corpuscular Hemoglobin 28.2 pg (27.0-33.0) Mean Corpuscular Hemoglobin Concent 32.9 g/dL (32.0-36.0) Red Cell Distribution Width 13.8 % (11.0-15.5) Platelet Count 301 K/uL (130-400) Mean Platelet Volume 10.8 fL (7.5-10.5) H Immature Granulocyte % (Auto) 0.4 % (0-1) Neutrophils (%) (Auto) 72.1 % (40.0-77.0) Lymphocytes (%) (Auto) 19.2 % (21.0-51.0) L Monocytes (%) (Auto) 7.3 % (3.0-13.0) Eosinophils (%) (Auto) 0.6 % (0.0-8.0) Basophils (%) (Auto) 0.4 % (0.0-5.0) Neutrophils # (Auto) 11.5 K/uL (1.8-7.7) H Lymphocytes # (Auto) 3.1 K/uL (1.0-4.8) Monocytes # (Auto) 1.2 K/uL (0.1-1.0) H Eosinophils # (Auto) 0.09 K/uL (0.00-0.70) Basophils # (Auto) 0.07 K/uL (0.00-0.20) Absolute Immature Granulocyte (auto 0.07 K/uL (0-1) Nucleated Red Blood Cells 0.0 % (0.0-0.19) Urine Color YELLOW (YELLOW) Urine Appearance CLEAR (CLEAR) Urine pH 5.5 (5.0-8.0) Urine Specific [place] 1.017 (1.001-1.031) Urine Protein 20 mg/dL (NEGATIVE) H Urine Glucose (UA) NEGATIVE mg/dL (NEGATIVE) Urine Ketones NEGATIVE mg/dL (NEGATIVE) Urine Occult Blood NEGATIVE (NEGATIVE) Urine Nitrate NEGATIVE (NEGATIVE) Urine Bilirubin NEGATIVE mg/dL (NEGATIVE) Urine Urobilinogen 0.2 mg/dL (0.2-1.0) Urine Leukocyte Esterase NEGATIVE Long/uL Urine RBC 0-1 /HPF (0-1) Urine WBC 2-5 /HPF (0-1) H Urine Squamous Epithelial Cells RARE /HPF (0-2) Urine Bacteria None /HPF (None Seen) Sodium Level 137 mmol/L (136-145) Potassium Level 3.5 mmol/L (3.5-5.1) Chloride Level 100 mmol/L (101-111) L Carbon Dioxide Level 26 mmol/L (21-32) Blood Urea Nitrogen 12 mg/dL (7-18) Creatinine 0.8 mg/dL (0.5-1.3) Glomerular Filtration Rate Calc 106 mL/min (>90) Random Glucose 158 mg/dL (70-105) H Total Calcium 9.1 mg/dL (8.5-10.1) Urine Opiates Screen NEGATIVE (NEGATIVE) Urine Barbiturates Screen NEGATIVE (NEGATIVE) Urine Phencyclidine Screen NEGATIVE (NEGATIVE) Urine Amphetamines Screen NEGATIVE (NEGATIVE) Urine Benzodiazepines Screen NEGATIVE (NEGATIVE) Urine Cocaine Screen POSITIVE (NEGATIVE) H Urine Marijuana (THC) Screen POSITIVE (NEGATIVE) H Serum Alcohol 4 mg/dL (0-10) MDM MDM: Differential diagnosis: Rationale: Tests considered and ordered secondary to shared decision making include: Previous outside records reviewed: Old ER visits. Risk of complication and/or morbidity or mortality of patient management: None Medications-Per medication reconciliation Need for hospitalization: Patient does not meet criteria for hospitalization. Need for emergency major/minor surgery: No There are no social concerns with this patient. Prescription drug management Prescriptions will include symptomatic care Patient's prior external medical records from other ER visits were reviewed by me as indicated. Prior testing and results from previous visits were reviewed. Prior tests were taken into account with medical decision making and resource utilization, independent historian/historians were used to obtain complete medical history. I independently interpreted the test that were performed, results were reviewed by me and considered findings on radiology if ordered. Medical management and examination interpretation discussions were had by me with other qualified healthcare professionals as indicated for the patient's care. ED Course Orders Procedure Category Date Status Time Knee 3vws Rt RAD 06/20/25 Resulted 03:25 Ketorolac PHA 06/20/25 Complete Tromethamine 30mg/Ml 03:30 Alcohol, Blood LAB 06/20/25 Complete 03:42 Urinalysis Profile LAB 06/20/25 Complete 03:42 Drug Screen Urine LAB 06/20/25 Complete 03:42 Cbc With Differential LAB 06/20/25 Complete 03:42 Basic Metabolic Panel LAB 06/20/25 Complete 03:42 Current Medications Medications (Trade) Dose Ordered Sig/Abraham Route PRN Reason Start Time Stop Time Status Last Admin Dose Admin Ketorolac Tromethamine (toRADol) 30 mg ONCE ONCE IVP 06/20/25 03:30 06/20/25 03:47 DC 06/20/25 03:56 Vital Signs Date Time Temp Pulse Resp B/P (MAP) Pulse Ox O2 Delivery O2 Flow Rate FiO2 06/20/25 05:55 98.8 70 20 122/56 98 Room Air* 0 21 06/20/25 03:18 98.8 78 18 133/66 99 Room Air* 0 06/20/25 03:16 98.1 94 16 122/92 97 Room Air 0 DX & DISP Disposition: Discharge Departure Impression: Primary Impression: Sprain of right knee Condition: Stable Referrals: SHAINA GONZALES PA-C (PCP) KARSTEN BONILLA MD Jun 20, 2025 06:25
== END 2025-06-20 06:32 | disposition home or self-care (01) ==
LOC: EDH 03:13
DX: S83.91XA Sprain of unspecified site of right knee, initial encounter (principal); E78.00 Pure hypercholesterolemia, unspecified; E11.40 Type 2 diabetes mellitus with diabetic neuropathy, unspecified; F31.9 Bipolar disorder, unspecified; M81.0 Age-related osteoporosis without current pathological fracture; I10 Essential (primary) hypertension; Z79.1 Long term (current) use of non-steroidal anti-inflammatories (NSAID); W19.XXXA Unspecified fall, initial encounter; Y93.89 Activity, other specified; Y92.89 Other specified places as the place of occurrence of the external cause; Y99.8 Other external cause status
CPT/HCPCS: 99284; 96374; 80048; 80305; 85025; 36415; 73562; 81001; J1885

== ENCOUNTER 2025-07-03 22:27 | Emergency (ER) | payer SELFPAY ==
[~2025-07-03] VITALS: Ht 175.3 cm; Wt 90.7 kg
[2025-07-03] MEDS ORDERED: ACET-2247 PO (22:53)
[2025-07-03] MEDS ORDERED: LIDO-112 TP (22:53)
[2025-07-03] MEDS ORDERED: IBUP-1492 PO (22:53)
--- NOTE | 2025-07-03 22:53 | ERN ---
ED Note History of Present Illness Stated Complaint: LOWER BACK PAIN Chief Complaint: Back Injury Time Seen by MD: 22:32 Dictation: Patient is a 54-year-old male with a chronic history of back pain, knee pain stated that he has injury to his lumbar spine, today he comes to the ER complaining of lower back pain. 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 Allergies: Coded Allergies: No Known Allergies (Unverified Allergy, Unknown, 08/09/22) Home Meds Active Scripts Lidocaine (Pain Relief Patch) 4 % Adh..patch, 1 EACH TP DAILY, #15 ADH.PATCH Prov:CHILO SMITH MD 07/03/25 Ibuprofen (Ibuprofen) 600 Mg Tablet, 1 TAB PO TID for pain for 10 Days, #30 TAB 0 Refills with food Prov:CHILO SMITH MD 07/03/25 Acetaminophen (Tylenol) 325 Mg Tablet, 1-2 TAB PO QIDP PRN for pain or fever for 7 Days, #30 TAB 0 Refills Prov:CHILO SMITH MD 07/03/25 Diphenhydramine HCl (Benadryl) 50 Mg Cap, 50 MG PO Q6H for itching/rash, #20 CAP 0 Refills Prov:RAJAT ESTRADAP 05/15/25 Ivermectin (Stromectol) 3 Mg Tab, 6 TAB PO ONCE, #12 TAB 0 Refills TAKE SIX TABLETS BY MOUTH X1 DOSE MAY REPEAT DOSE IN 10 DAYS Prov:[facility]JAT ESTRADA [facility] 05/15/25 Clindamycin HCl (Clindamycin HCl) 300 Mg Capsule, 1 CAP PO QID for 10 Days, #40 CAP 0 Refills Prov:RAJAT ESTRADAP 05/15/25 Ibuprofen (Ibuprofen) 600 Mg Tablet, 600 MG PO Q6H PRN for PAIN, #15 TAB 0 Refills Prov:ANDRIA PENDLETON [facility] 04/24/25 Prednisone (Prednisone) 20 Mg Tablet, 40 MG PO DAILYBKFST for 5 Days, #5 TAB 0 Refills Prov:ANDRIA PENDLETON [facility] 04/24/25 Clotrimazole (Clotrimazole) 1 % Cream..g., 1 APPL TP BID for 7 Days, #30 GM 0 Refills WASH PENIS WITH SOAP AND WATER THOROUGHLY DRY, APPLY SMALL AMOUNT OF OINTMENT TO HEAD OF PENIS AND REPLACED FORESKIN TWICE A DAY FOR THE NEXT 7-10 DAYS. Prov:RAJAT ESTRADA [employer] 03/14/25 Ibuprofen (Motrin/Advil) 800 Mg Tab, 800 MG PO TID, #30 TAB Prov:SHERRELL MENON MD 09/21/22 Past Medical History Past Medical History: Bipolar, Diabetes-Type II, High Cholesterol, Hypertension Additional Past Medical Hx: OSTEOPOROSIS, PTSD, NEUROPATHY BILATERAL FEET Surgical History: Other Surgical History Other: right knee arthroscopy Family History: Negative Social History: ETOH, Negative Review of System Dictation NEGATIVE EXCEPT PER HPI Constitutional: Negative for fever,chills, and weight loss Eyes: Negative for injury, pain,redness, and discharge ENT: Negative for injury,pain or swelling Cardiovascular: denies chest pain, palpitations, and edema Respiratory: Negative for shortness of breath, cough, and wheezing, Abdomen/GI: Negative for abdominal pain, nausea, vomiting, diarrhea, and constipation Back: Back pain : Negative for injury, bleeding and discharge MS/Extremity: Negative for injury and deformity Skin: Negative for rash, and discoloration Neuro: Negative for headache, weakness, numbness, tingling, and seizure Psych: Negative for suicide ideation, homicidal ideation, and hallucinations Initial Vital Sign VS Vital Signs Date Time Temp Pulse Resp B/P (MAP) Pulse Ox O2 Delivery O2 Flow Rate FiO2 07/03/25 22:44 97.9 96 16 119/77 98 Room Air 0 Physical Exam Dictation General: awake, alert, NAD Head/Face: Normocephalic, atraumatic Eyes: PERRL, EOMI, vision at baseline ENT: oral cavity clear, TMs clear, no signs of infection Neck: Trachea midline, supple, no nuchal rigidity Cardiovascular: RRR, normal S1/S2, No MRGs, no JVD Respiratory: CTAB, no respiratory distress, No rales or wheezes Abdomen: Soft , no tender Skin: Warm, dry, normal turgor, no rash MS/Extremity: Pulses equal, no cyanosis, neurovascular intact, FROM Neuro: COAx4, GCS 15, strength 5/5, CN 2-12 intact, normal cerebellar exam, normal gait, Psych: Normal behavior, mood, and affect normal ED Course ED Course Orders Procedure Category Date Status Time Ketorolac PHA 07/03/25 Complete Tromethamine 30mg/Ml 23:00 Acetaminophen 325 Tab PHA 07/03/25 Complete (Tylenol 325mg Tab 23:00 Lidocaine (Lidocaine PHA 07/03/25 Complete Patch 4%) 23:00 Current Medications Medications (Trade) Dose Ordered Sig/Abraham Route PRN Reason Start Time Stop Time Status Last Admin Dose Admin Acetaminophen (TYLenol 325MG TAB) 650 mg ONCE ONCE PO 07/03/25 23:00 07/03/25 23:01 DC Ketorolac Tromethamine (toRADol) 30 mg ONCE ONCE IM 07/03/25 23:00 07/03/25 23:01 DC Lidocaine (Lidocaine Patch 4%) 1 each ONCE ONCE TP 07/03/25 23:00 07/03/25 23:01 DC Vital Signs Date Time Temp Pulse Resp B/P (MAP) Pulse Ox O2 Delivery O2 Flow Rate FiO2 07/03/25 22:44 97.9 96 16 119/77 98 Room Air 0 Medical Decision Making MDM 54-year-old male with a history of chronic back pain comes to the ER complaining of 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 Chronic back pain Muscle strain Ordered ketorolac IM Tylenol p.o. Lidocaine patch to be applied to the lower back. I will send prescription for pain medication, patient was follow up with the PCP. DX & DISP Disposition: Discharge Departure Impression: Primary Impression: Back pain Additional Impression: Back pain at L4-L5 level Condition: Stable Scripts Lidocaine (Pain Relief Patch) 4 % Adh..patch 1 EACH TP DAILY, #15 ADH.PATCH Prov: CHILO SMITH MD 07/03/25 Ibuprofen (Ibuprofen) 600 Mg Tablet 1 TAB PO TID for pain for 10 Days, #30 TAB 0 Refills with food Prov: CHILO SMITH MD 07/03/25 Acetaminophen (Tylenol) 325 Mg Tablet 1-2 TAB PO QIDP PRN for pain or fever for 7 Days, #30 TAB 0 Refills Prov: CHILO SMITH MD 07/03/25 Additional Instructions: RETURN TO ER FOR ANY ACUTE OR WORSENING SYMPTOMS. FOLLOW-UP IN 1-2 DAYS WITH PRIMARY PROVIDER FOR RECHECK OF TODAY'S SYMPTOMS. Referrals: SHAINA GONZALES PA-C (PCP) Time of Disposition: 23:23 CHILO SMITH MD Jul 03, 2025 22:53
[2025-07-04] MEDS: LIDOCAINE 4% ADH..PATCH TP ONE (00:12)
[2025-07-04 00:22] VITALS: BP 121/76; PULSE 91; RESP 18; TEMP 98.1; O2SAT 97
== END 2025-07-04 00:40 | disposition home or self-care (01) ==
LOC: EDH 22:27
DX: M54.50 Low back pain, unspecified (principal); F31.9 Bipolar disorder, unspecified; E78.00 Pure hypercholesterolemia, unspecified; I10 Essential (primary) hypertension; E11.40 Type 2 diabetes mellitus with diabetic neuropathy, unspecified; M81.0 Age-related osteoporosis without current pathological fracture; Z79.1 Long term (current) use of non-steroidal anti-inflammatories (NSAID)
CPT/HCPCS: 99283; 96372; J1885